=== PATIENT | female | born 1955 | race Caucasian/White ===

== ENCOUNTER 2016-06-10 13:47 | Emergency (ER) | payer MEDICARE, OTHER ==
[~2016-06-10] VITALS: Ht 172.7 cm; Wt 75.0 kg
[~2016-06-10 13:47] MED LIST: ADVAIR 100/28 DISKU1 IH; ALBUTEROL0.09 MG/A4 IH; ANTIVERT 25MG25 MG PO; DALIRESP500 MCG PO; DIAZEPAM5 MG PO; DIFLUCAN 100MG100 MG PO; ERY-TAB250 M1 PO; FLEXERIL 1010 MG/TAB PO; IBUPROFEN800 MG PO; IPRATROPIUM BROM3 M1 IH; K-TAB10 MEQ PO; LASIX40 MG PO; LEVAQUIN 5500 MG/TA1 PO; LOW DOSE ASPIRI81 MG PO; MICARDIS40 MG PO; MONODOX100 PO; MOTRIN 800800 MG/TAB PO; NEXIUM40 MG PO; PERFOROMIS20 MCG/2 M IH; PREDNISONE10 M1 PO; PREDNISONE20 MG PO; PROTONIX 40MG T40 MG PO; PULMICORT0.5 MG/2 M IH; PULMICORT180 MCG/Ac IH; ROXICODONE 55 MG/TAB PO; SINGULAIR10 MG PO; SPIRIVA18 MCG IH; VERAPAMIL240 MG PO
[2016-06-10 13:50] VITALS: TEMP 97.7
[2016-06-10 14:40] LABS: BASO # 0.1 (0.0-0.2); BASO % 0.5 % (0.0-2.0); EOS # 0.2 (0.0-0.7); EOS % 1.5 % (0-4.0); GRAN # 9.9 (1.4-6.5); GRAN % 76.1 % (42.2-75.2); HEMATOCRIT 43.6 % (37.0-47.0); HEMOGLOBIN 14.4 g/dl (12.5-16.0); LYMPH # 1.9 (1.2-3.4); LYMPH % 14.7 % (20.0-51.0); MEAN CELL VOLUME 88 fl (80.0-100.0); MEAN CORPUSCULAR HEMOGLOBIN 29 pg (27.0-31.0); MEAN CORPUSCULAR HGB CONC 33 g/dl (33.0-37.0); MEAN PLATELET VOLUME 9.2 fl (7.4-10.4); MONO # 0.9 (0.1-0.6); MONO % 6.7 % (1.7-9.3); PLATELET COUNT 244 K/mm3 (130-400); RED BLOOD COUNT 4.96 M/mm3 (4.10-5.30); REDCELL DISTRIBUTION WIDTH-CV 14.1 % (11.5-14.5)
[2016-06-10 14:46] LABS: PROTHROMBIN TIME 36.1 SECONDS (9.7-12.8)
[2016-06-10 14:48] LABS: PARTIAL THROMBOPLASTIN TIME 52.7 SECONDS (26.0-37.0)
[2016-06-10 14:48] LABS: ARTERIAL BLD GAS O2 SATURATION 94.1 % (92-100); ARTERIAL BLD GAS TCO2 CT 27.5; ARTERIAL BLOOD GAS BASE EXCESS 2.9 (-2-2); ARTERIAL BLOOD GAS HCO3 26.4 meq/L (22-26); ARTERIAL BLOOD GAS PHT 7.47 C (7.35-7.45); ARTERIAL BLOOD GAS PO2 65.8 mmHg (80-100); ARTERIAL BLOOD GAS PO2T 65.8 (80-100); ARTERIAL BLOOD GAS pH 7.47 (7.35-7.45); OXYHEMOGLOBIN 90.4 %
[2016-06-10 14:49] LABS: ALLEN TEST YES; ALLENS TEST RESULT PASS; ATS? YES
[2016-06-10 14:49] LABS: INR 3.1 (0.8-3.0)
[2016-06-10 15:07] LABS: B-TYPE NATRIURETIC PEPTIDE 94 pg/mL (0-125); TROPONIN-I < 0.012 ng/mL (0.000-0.034)
[2016-06-10 16:39] LABS: ALANINE AMINOTRANSFERASE 29 U/L (9-52); ALBUMIN 3.4 gm/dL (3.5-5.0); ALKALINE PHOSPHATASE 91 U/L (50-136); ANION GAP 8 mmol/L (7-16); BILIRUBIN,TOTAL 0.9 mg/dL (0.0-1.0); BLOOD UREA NITROGEN 12 mg/dL (7-17); CALCIUM 9.5 mg/dL (8.4-10.2); CARBON DIOXIDE 28 mmol/L (22-30); CHLORIDE 99 mmol/L (98-107); CREATININE, serum 0.84 mg/dL (0.52-1.25); GLUCOSE 95 mg/dL (74-106); POTASSIUM 3.9 mmol/L (3.4-5.0); SODIUM 136 mmol/L (137-145); TOTAL PROTEIN 6.7 gm/dL (6.4-8.2)
[2016-06-10] MEDS ORDERED: CONSTULOSE 20G/30ML PO (18:09)
[2016-06-10 18:48] VITALS: BP 138/86; PULSE 100
== END 2016-06-10 18:48 | disposition home or self-care (01) ==
LOC: COL.ER 13:47
PROVIDERS: Emergency Medicine
DX: J44.9 Chronic obstructive pulmonary disease, unspecified (principal); K59.00 Constipation, unspecified; I10 Essential (primary) hypertension; Z87.891 Personal history of nicotine dependence

== ENCOUNTER 2016-07-25 00:12 | Inpatient (IN) | payer MEDICARE, OTHER ==
[~2016-07-25] VITALS: Ht 172.7 cm; Wt 76.2 kg
[~2016-07-25 00:12] MED LIST changes: +CONSTULOSE 20G/30ML PO
[2016-07-25 00:38] LABS: BASO # 0.1 (0.0-0.2); EOS # 0.2 (0.0-0.7); GRAN # 7.1 (1.4-6.5); HEMOGLOBIN 13.4 g/dl (12.5-16.0); LYMPH # 2.4 (1.2-3.4); LYMPH % 23.1 % (20.0-51.0); MEAN CELL VOLUME 88 fl (80.0-100.0); MEAN CORPUSCULAR HEMOGLOBIN 29 pg (27.0-31.0); MEAN CORPUSCULAR HGB CONC 33 g/dl (33.0-37.0); MEAN PLATELET VOLUME 8.9 fl (7.4-10.4); MONO # 0.5 (0.1-0.6); MONO % 4.7 % (1.7-9.3); PLATELET COUNT 260 K/mm3 (130-400); RED BLOOD COUNT 4.66 M/mm3 (4.10-5.30); REDCELL DISTRIBUTION WIDTH-CV 13.9 % (11.5-14.5); WHITE BLOOD COUNT 10.3 K/mm3 (4.8-10.8)
[2016-07-25 00:48] LABS: CALCIUM 9.4 mg/dL (8.4-10.2); CREATININE, serum 0.94 mg/dL (0.52-1.25); POTASSIUM 3.8 mmol/L (3.4-5.0)
[2016-07-25] MEDS ORDERED: IPRATROPIUM BROM3 M1 IH (01:43)
[2016-07-25] MEDS ORDERED: VALIUM 5MG T5 MG/TAB PO (01:44)
[2016-07-25] MEDS ORDERED: ZYRTEC 10MG10 MG PO (01:46)
[2016-07-25 01:48] LABS: INR 1.9 (0.8-3.0); PROTHROMBIN TIME 21.8 SECONDS (9.7-12.8)
[2016-07-25] MEDS ORDERED: COUMADIN 5MG5 MG/TAB PO ×2 (02:00→02:23)
[2016-07-25 04:19] VITALS: BP 103/57; PULSE 93; TEMP 98.3
[2016-07-25 08:06] VITALS: BP 120/72; PULSE 74; TEMP 97.5
[2016-07-25] MEDS ORDERED: VERAPAMIL240 MG/TAB PO (08:17)
[2016-07-25 12:24] VITALS: BP 93/53; PULSE 82; TEMP 97.7
[2016-07-25 15:34] VITALS: BP 100/62; PULSE 85; TEMP 97.6
[2016-07-25 19:42] VITALS: BP 119/60; PULSE 93; TEMP 98
[2016-07-25 22:59] VITALS: BP 123/93; PULSE 111; TEMP 97.9
[2016-07-26 04:23] VITALS: BP 114/59; PULSE 112; TEMP 98.7
[2016-07-26 07:40] LABS: INR 1.7 (0.8-3.0); PROTHROMBIN TIME 19.3 SECONDS (9.7-12.8)
[2016-07-26 07:47] LABS: HEMOGLOBIN 12.1 g/dl (12.5-16.0); MEAN CELL VOLUME 88 fl (80.0-100.0); MEAN CORPUSCULAR HEMOGLOBIN 29 pg (27.0-31.0); MEAN CORPUSCULAR HGB CONC 33 g/dl (33.0-37.0); MEAN PLATELET VOLUME 9.3 fl (7.4-10.4); PLATELET COUNT 257 K/mm3 (130-400); RED BLOOD COUNT 4.15 M/mm3 (4.10-5.30); REDCELL DISTRIBUTION WIDTH-CV 14.1 % (11.5-14.5); WHITE BLOOD COUNT 15.5 K/mm3 (4.8-10.8)
[2016-07-26 08:02] VITALS: BP 117/77; PULSE 116; TEMP 96.9
[2016-07-26 08:07] LABS: ADD PATHOLOGY DIFF REVIEW NO; HEMATOCRIT 36.6 % (37.0-47.0)
[2016-07-26 08:34] LABS: CALCIUM 8.8 mg/dL (8.4-10.2); CREATININE, serum 0.88 mg/dL (0.52-1.25); POTASSIUM 3.8 mmol/L (3.4-5.0)
[2016-07-26 08:59] LABS: BAND 9 % (0-10); NEUTROPHILS 84 % (42.0-75.2); PLATELET ESTIMATE NORMAL (NORMAL); TOTAL CELLS COUNTED 100
[2016-07-26 11:12] VITALS: BP 100/53; PULSE 108; TEMP 98
[2016-07-26] MEDS ORDERED: ZITHROMAX 250M250 MG PO (14:37)
[2016-07-26] MEDS ORDERED: PREDNISONE20 MG PO (14:38)
[2016-07-26] MEDS ORDERED: PHENERGAN 25 TA25 MG PO (15:07)
== END 2016-07-26 16:15 | disposition home or self-care (01) | DRG 189 ==
LOC: COL.ER 00:12 → MEDICAL 02:57 → COL.ER 02:57 → MEDICAL 02:57
PROVIDERS: Emergency Medicine; Internal Medicine; Physician Assistant
DX: J96.21 Acute and chronic respiratory failure with hypoxia (principal); J44.1 Chronic obstructive pulmonary disease with (acute) exacerbation; Z79.01 Long term (current) use of anticoagulants; I48.91 Unspecified atrial fibrillation; I10 Essential (primary) hypertension; R07.81 Pleurodynia
CPT/HCPCS: A4315; G8978-GP; G8979-GP; J0456; J1650; J1885; J2550; J2920; J7040; J7050; J7512

== ENCOUNTER 2016-09-30 14:55 | Emergency (ER) | payer MEDICARE, OTHER ==
[~2016-09-30] VITALS: Ht 172.7 cm; Wt 72.7 kg
[~2016-09-30 14:55] MED LIST changes: +COUMADIN 5MG5 MG/TAB PO; +PHENERGAN 25 TA25 MG PO; +VALIUM 5MG T5 MG/TAB PO; +VERAPAMIL240 MG/TAB PO; +ZITHROMAX 250M250 MG PO; +ZYRTEC 10MG10 MG PO
[2016-09-30 14:59] VITALS: TEMP 98.5
[2016-09-30 15:23] LABS: BASO # 0.1 (0.0-0.2); BASO % 0.8 % (0.0-2.0); EOS # 0.2 (0.0-0.7); GRAN % 76.4 % (42.2-75.2); HEMATOCRIT 44.8 % (37.0-47.0); HEMOGLOBIN 14.9 g/dl (12.5-16.0); LYMPH # 1.6 (1.2-3.4); LYMPH % 17.2 % (20.0-51.0); MEAN CELL VOLUME 89 fl (80.0-100.0); MEAN CORPUSCULAR HEMOGLOBIN 29 pg (27.0-31.0); MEAN CORPUSCULAR HGB CONC 33 g/dl (33.0-37.0); MEAN PLATELET VOLUME 8.9 fl (7.4-10.4); MONO # 0.3 (0.1-0.6); MONO % 3.4 % (1.7-9.3); PLATELET COUNT 229 K/mm3 (130-400); RED BLOOD COUNT 5.06 M/mm3 (4.10-5.30); REDCELL DISTRIBUTION WIDTH-CV 13.7 % (11.5-14.5); WHITE BLOOD COUNT 9.2 K/mm3 (4.8-10.8)
[2016-09-30 15:29] LABS: ADJUSTED CALCIUM 9.4 mg/dL (8.4-10.2); ALANINE AMINOTRANSFERASE 22 U/L (9-52); ALKALINE PHOSPHATASE 78 U/L (50-136); ANION GAP 11 mmol/L (7-16); BILIRUBIN,TOTAL 0.7 mg/dL (0.0-1.0); BLOOD UREA NITROGEN 9 mg/dL (7-17); CALCIUM 9.4 mg/dL (8.4-10.2); CARBON DIOXIDE 30 mmol/L (22-30); CHLORIDE 102 mmol/L (98-107); CREATININE, serum 0.92 mg/dL (0.52-1.25); GLUCOSE 94 mg/dL (74-106); SODIUM 143 mmol/L (137-145); TOTAL PROTEIN 6.8 gm/dL (6.4-8.2)
[2016-09-30 15:47] LABS: POTASSIUM 2.9 mmol/L (3.4-5.0)
[2016-09-30 15:58] LABS: TROPONIN-I < 0.012 ng/mL (0.000-0.034)
[2016-09-30 16:05] LABS: MAGNESIUM 1.9 mg/dL (1.6-2.3)
[2016-09-30 16:54] LABS: B-TYPE NATRIURETIC PEPTIDE 159 pg/mL (0-125)
[2016-09-30] MEDS ORDERED: MEDROL 4MG DOSPA4 MG PO (17:02)
[2016-09-30] MEDS ORDERED: KLOR-CON 1010 MEQ PO (17:09)
[2016-09-30 17:42] LABS: PH 7 (5-8); SQUAMOUS EPITHELIAL None Seen /hpf; URINE APPEARANCE Clear; URINE BACTERIA None Seen /hpf; URINE BILIRUBIN Negative (NEGATIVE); URINE BLOOD 1+ (NEGATIVE); URINE COLOR Straw; URINE GLUCOSE Negative (NEGATIVE); URINE KETONE Negative (NEGATIVE); URINE RBC 0-2 /hpf; URINE UROBILINOGEN Negative (NEGATIVE); URINE WBC 0-2 /hpf
[2016-09-30] MEDS ORDERED: TUSS PO (18:23)
[2016-09-30 18:40] VITALS: BP 128/78; PULSE 98
== END 2016-09-30 18:42 | disposition home or self-care (01) ==
LOC: COL.ER 14:55
PROVIDERS: Emergency Medicine
DX: J44.1 Chronic obstructive pulmonary disease with (acute) exacerbation (principal); E87.6 Hypokalemia; R09.89 Other specified symptoms and signs involving the circulatory and respiratory systems; R05 Cough; I48.91 Unspecified atrial fibrillation; Z79.01 Long term (current) use of anticoagulants; I10 Essential (primary) hypertension; F17.210 Nicotine dependence, cigarettes, uncomplicated
CPT/HCPCS: J1885; J3475; J7030; J7512

== ENCOUNTER 2016-12-03 17:20 | Emergency (ER) | payer MEDICARE, OTHER ==
[~2016-12-03] VITALS: Ht 172.7 cm; Wt 68.2 kg
[~2016-12-03 17:20] MED LIST changes: +KLOR-CON 1010 MEQ PO; +MEDROL 4MG DOSPA4 MG PO; +TUSS PO
[2016-12-03 17:28] VITALS: TEMP 98.2
[2016-12-03 18:10] LABS: BASO # 0.1 (0.0-0.2); BASO % 0.8 % (0.0-2.0); EOS # 0.3 (0.0-0.7); EOS % 3.2 % (0-4.0); GRAN # 6.9 (1.4-6.5); GRAN % 70.5 % (42.2-75.2); HEMATOCRIT 41.5 % (37.0-47.0); HEMOGLOBIN 13.8 g/dl (12.5-16.0); LYMPH # 1.9 (1.2-3.4); LYMPH % 18.9 % (20.0-51.0); MEAN CELL VOLUME 88 fl (80.0-100.0); MEAN CORPUSCULAR HEMOGLOBIN 29 pg (27.0-31.0); MEAN CORPUSCULAR HGB CONC 33 g/dl (33.0-37.0); MEAN PLATELET VOLUME 9.4 fl (7.4-10.4); MONO # 0.6 (0.1-0.6); MONO % 6.3 % (1.7-9.3); PLATELET COUNT 269 K/mm3 (130-400); RED BLOOD COUNT 4.74 M/mm3 (4.10-5.30); REDCELL DISTRIBUTION WIDTH-CV 13.8 % (11.5-14.5); WHITE BLOOD COUNT 9.8 K/mm3 (4.8-10.8)
[2016-12-03 18:22] LABS: INR 1.6 (0.8-3.0); PROTHROMBIN TIME 18.2 SECONDS (9.7-12.8)
[2016-12-03 18:25] LABS: PARTIAL THROMBOPLASTIN TIME 37.4 SECONDS (26.0-37.0)
[2016-12-03 18:36] LABS: ADJUSTED CALCIUM 9.4 mg/dL (8.4-10.2); ALANINE AMINOTRANSFERASE 18 U/L (9-52); ALBUMIN 3.8 gm/dL (3.5-5.0); ALKALINE PHOSPHATASE 70 U/L (50-136); ANION GAP 9 mmol/L (7-16); BILIRUBIN,TOTAL 0.5 mg/dL (0.0-1.0); BLOOD UREA NITROGEN 11 mg/dL (7-17); C-REACTIVE PROTEIN 1.2 mg/dL (0.0-0.9); CALCIUM 9.2 mg/dL (8.4-10.2); CARBON DIOXIDE 29 mmol/L (22-30); CHLORIDE 100 mmol/L (98-107); CREATININE, serum 0.74 mg/dL (0.52-1.25); GLUCOSE 116 mg/dL (74-106); POTASSIUM 3.1 mmol/L (3.4-5.0); SODIUM 138 mmol/L (137-145); TOTAL PROTEIN 6.6 gm/dL (6.4-8.2)
[2016-12-03 18:44] LABS: TROPONIN-I < 0.012 ng/mL (0.000-0.034)
[2016-12-03] MEDS ORDERED: NORCO 325 MG-51 TAB PO (18:55)
[2016-12-03] MEDS ORDERED: ZOFRAN 4MG T4 MG/TAB PO (18:55)
[2016-12-03 19:18] VITALS: BP 132/88; PULSE 89
== END 2016-12-03 19:20 | disposition home or self-care (01) ==
LOC: COL.ER 17:20
PROVIDERS: Family Medicine
DX: M25.512 Pain in left shoulder (principal); R07.9 Chest pain, unspecified; J44.9 Chronic obstructive pulmonary disease, unspecified; F17.210 Nicotine dependence, cigarettes, uncomplicated
CPT/HCPCS: J2270

== ENCOUNTER → 2017-06-14 | Outpatient (CLI) | payer MEDICARE, OTHER ==
[~2017-06-14] MED LIST changes: +DULCOLAX S10 MG/SUPP RC; +NORCO 325 MG-51 TAB PO; +ZOFRAN 4MG T4 MG/TAB PO
== END ==
LOC: COL.RAD 08:15
DX: K57.92 Diverticulitis of intestine, part unspecified, without perforation or abscess without bleeding (principal); K82.9 Disease of gallbladder, unspecified
CPT/HCPCS: A9541

== ENCOUNTER 2017-07-07 20:10 | Emergency (ER) | payer MEDICARE, OTHER ==
[~2017-07-07] VITALS: Ht 172.7 cm; Wt 54.5 kg
[2017-07-07 21:19] LABS: COLLECTION METHOD CLEAN CATCH
[2017-07-07 21:22] LABS: BASO # 0.1 (0.0-0.2); BASO % 0.8 % (0.0-2.0); EOS # 0.1 (0.0-0.7); EOS % 1.2 % (0-4.0); GRAN # 6.3 (1.4-6.5); GRAN % 74.5 % (42.2-75.2); HEMOGLOBIN 14.2 g/dl (12.5-16.0); LYMPH # 1.5 (1.2-3.4); LYMPH % 17.6 % (20.0-51.0); MEAN CELL VOLUME 89 fl (80.0-100.0); MEAN CORPUSCULAR HEMOGLOBIN 30 pg (27.0-31.0); MEAN CORPUSCULAR HGB CONC 33 g/dl (33.0-37.0); MEAN PLATELET VOLUME 9.2 fl (7.4-10.4); MONO # 0.5 (0.1-0.6); MONO % 5.7 % (1.7-9.3); PLATELET COUNT 253 K/mm3 (130-400); RED BLOOD COUNT 4.82 M/mm3 (4.10-5.30); REDCELL DISTRIBUTION WIDTH-CV 13.7 % (11.5-14.5)
[2017-07-07 21:27] LABS: PROTHROMBIN TIME 23.9 SECONDS (9.7-12.8)
[2017-07-07 21:34] LABS: ALANINE AMINOTRANSFERASE 21 U/L (9-52); ALKALINE PHOSPHATASE 78 U/L (50-136); ANION GAP 7 mmol/L (7-16); AST,SGOT 15 U/L (15-37); BILIRUBIN,TOTAL 0.5 mg/dL (0.0-1.0); BLOOD UREA NITROGEN 9 mg/dL (7-17); C-REACTIVE PROTEIN 0.9 mg/dL (0.0-0.9); CARBON DIOXIDE 29 mmol/L (22-30); CHLORIDE 101 mmol/L (98-107); CREATININE, serum 0.79 mg/dL (0.52-1.25); GLUCOSE 101 mg/dL (74-106); LIPASE 24 U/L (23-300); SODIUM 137 mmol/L (137-145); TOTAL PROTEIN 6.9 gm/dL (6.4-8.2)
[2017-07-07 21:36] LABS: MUCOUS Present /lpf; PH 7 (5-8); SQUAMOUS EPITHELIAL 0-2 /hpf; URINE APPEARANCE Hazy; URINE BACTERIA Rare /hpf; URINE BILIRUBIN Negative (NEGATIVE); URINE BLOOD 1+ (NEGATIVE); URINE COLOR Yellow; URINE GLUCOSE Negative (NEGATIVE); URINE KETONE Negative (NEGATIVE); URINE LEUKOCYTE ESTERASE 1+ (NEGATIVE); URINE NITRATE Negative (NEGATIVE); URINE PROTEIN(semi-quant) Negative (NEGATIVE); URINE RBC 0-2 /hpf; URINE UROBILINOGEN Negative (NEGATIVE)
[2017-07-07 21:45] LABS: TROPONIN-I < 0.012 ng/mL (0.000-0.034)
[2017-07-07 21:59] VITALS: TEMP 98.1
[2017-07-07] MEDS ORDERED: ZOFRAN 4MG T4 MG/TAB PO (23:55)
[2017-07-07] MEDS ORDERED: MACROBID 1100 MG/CAP PO (23:55)
[2017-07-08 00:29] VITALS: BP 112/67; PULSE 92
== END 2017-07-08 00:32 | disposition home or self-care (01) ==
LOC: COL.ER 20:10
PROVIDERS: Emergency Medicine
DX: N39.0 Urinary tract infection, site not specified (principal); R10.84 Generalized abdominal pain; R07.9 Chest pain, unspecified; R11.0 Nausea; I10 Essential (primary) hypertension; I48.0 Paroxysmal atrial fibrillation; J44.9 Chronic obstructive pulmonary disease, unspecified; F17.210 Nicotine dependence, cigarettes, uncomplicated; Z79.52 Long term (current) use of systemic steroids; Z79.82 Long term (current) use of aspirin; Z79.01 Long term (current) use of anticoagulants; Z90.49 Acquired absence of other specified parts of digestive tract
CPT/HCPCS: J2405; J3010; J7030

== ENCOUNTER 2017-10-04 08:00 | Day surgery (SDC) | payer MEDICARE, OTHER ==
[~2017-10-04] VITALS: Ht 172.8 cm; Wt 59.1 kg
[~2017-10-04 08:00] MED LIST changes: +MACROBID 1100 MG/CAP PO; +VERAPAMIL180 MG/TAB PO; -VERAPAMIL240 MG/TAB PO
[2017-10-04 08:36] VITALS: BP 118/67; PULSE 89; TEMP 97.8
[2017-10-04] MEDS ORDERED: RT SPIRIVA18 MCG IH (08:44)
[2017-10-04] MEDS ORDERED: PROAIR HFA0.09 MG/AC IH (08:45)
[2017-10-04] MEDS ORDERED: ZYRTEC 10MG10 MG PO (08:47)
[2017-10-04] MEDS ORDERED: PROTONIX 40MG T40 MG PO (08:49)
[2017-10-04] MEDS ORDERED: REGLAN 5MG T5 MG/TAB PO (08:49)
[2017-10-04] MEDS ORDERED: CLEOCIN HCL300 MG PO (10:25)
== END 2017-10-04 14:00 | disposition home or self-care (01) ==
LOC: COL.CAR 08:00
DX: I48.0 Paroxysmal atrial fibrillation (principal); I47.1 Supraventricular tachycardia; I10 Essential (primary) hypertension; I25.10 Atherosclerotic heart disease of native coronary artery without angina pectoris; J44.9 Chronic obstructive pulmonary disease, unspecified; F17.210 Nicotine dependence, cigarettes, uncomplicated; Z82.49 Family history of ischemic heart disease and other diseases of the circulatory system; Z88.0 Allergy status to penicillin; Z88.2 Allergy status to sulfonamides; Z79.82 Long term (current) use of aspirin; Z79.01 Long term (current) use of anticoagulants; Z82.5 Family history of asthma and other chronic lower respiratory diseases

== ENCOUNTER 2017-12-20 12:58 | Day surgery (SDC) | payer MEDICARE, OTHER ==
[~2017-12-20] VITALS: Ht 172.7 cm; Wt 59.7 kg
[~2017-12-20 12:58] MED LIST changes: +CLEOCIN HCL300 MG PO; +PROAIR HFA0.09 MG/AC IH; +REGLAN 5MG T5 MG/TAB PO; +RT SPIRIVA18 MCG IH
[2017-12-20 13:52] VITALS: BP 117/87; PULSE 135; TEMP 98.6
[2017-12-20] MEDS ORDERED: RT SPIRIVA18 MCG IH (13:59)
[2017-12-20] MEDS ORDERED: PROAIR HFA0.09 MG/AC IH (14:00)
[2017-12-20] MEDS ORDERED: VERELAN180 MG PO (14:00)
[2017-12-20] MEDS ORDERED: SINGULAIR 110 MG/TAB PO (14:01)
[2017-12-20] MEDS ORDERED: ZYRTEC 10MG10 MG PO (14:01)
[2017-12-20] MEDS ORDERED: ASPIRIN 81M81 MG/TA2 PO (14:01)
[2017-12-20] MEDS ORDERED: VALIUM 5MG T5 MG/TAB PO (14:02)
[2017-12-20] MEDS ORDERED: REGLAN 5MG T5 MG/TAB PO (14:02)
[2017-12-20] MEDS ORDERED: PROTONIX 40MG T40 MG PO (14:02)
[2017-12-20] MEDS ORDERED: COUMADIN 5MG5 MG/TAB PO (14:03)
[2017-12-20] MEDS ORDERED: PERFOROMIS20 MCG/2 M IH ×2 (14:05→14:10)
[2017-12-20] MEDS ORDERED: CIPRO 500MG TA500 MG PO (14:06)
[2017-12-20] MEDS ORDERED: FLAGYL500 MG PO (14:08)
[2017-12-20] MEDS ORDERED: COMPAZINE 110 MG/TAB PO (14:09)
[2017-12-20] MEDS ORDERED: ALBUTEROL0.83 MG/ML IH (14:10)
[2017-12-20] MEDS ORDERED: MIRTAZAPINE7.5 MG PO (14:15)
[2017-12-20 15:15] VITALS: BP 130/88; PULSE 112; TEMP 98.4
[2017-12-20 15:30] VITALS: BP 124/80; PULSE 104
[2017-12-20 15:45] VITALS: BP 102/73; PULSE 105
[2017-12-20 16:00] VITALS: BP 110/71; PULSE 100
== END 2017-12-20 16:19 | disposition home or self-care (01) ==
LOC: SDCO 12:58
DX: K55.9 Vascular disorder of intestine, unspecified (principal); K57.30 Diverticulosis of large intestine without perforation or abscess without bleeding; K21.9 Gastro-esophageal reflux disease without esophagitis; K29.30 Chronic superficial gastritis without bleeding; J45.909 Unspecified asthma, uncomplicated; I48.91 Unspecified atrial fibrillation; E78.00 Pure hypercholesterolemia, unspecified; N39.0 Urinary tract infection, site not specified; Z88.0 Allergy status to penicillin; Z88.1 Allergy status to other antibiotic agents; Z79.82 Long term (current) use of aspirin; Z90.49 Acquired absence of other specified parts of digestive tract; Z90.710 Acquired absence of both cervix and uterus
CPT/HCPCS: J2250; J2405; J3010; J7030

== ENCOUNTER 2018-03-26 20:06 | Inpatient (IN) | payer MEDICARE, OTHER ==
[~2018-03-26] VITALS: Ht 172.7 cm; Wt 55.6 kg
[~2018-03-26 20:06] MED LIST changes: +ALBUTEROL0.83 MG/ML IH; +ASPIRIN 81M81 MG/TA2 PO; +CIPRO 500MG TA500 MG PO; +COMPAZINE 110 MG/TAB PO; +COUMADIN 22.5 MG/TAB PO; +FLAGYL500 MG PO; +MIRTAZAPINE7.5 MG PO; +SINGULAIR 110 MG/TAB PO; +VERELAN180 MG PO
[2018-03-26 20:39] LABS: BASO # 0.1 (0.0-0.2); BASO % 0.6 % (0.0-2.0); EOS # 0.2 (0.0-0.7); EOS % 2.7 % (0-4.0); GRAN # 5.5 (1.4-6.5); GRAN % 68.4 % (42.2-75.2); HEMATOCRIT 38.7 % (37.0-47.0); HEMOGLOBIN 12.7 g/dl (12.5-16.0); LYMPH # 1.9 (1.2-3.4); LYMPH % 23.1 % (20.0-51.0); MEAN CELL VOLUME 90 fl (80.0-100.0); MEAN CORPUSCULAR HEMOGLOBIN 30 pg (27.0-31.0); MEAN CORPUSCULAR HGB CONC 33 g/dl (33.0-37.0); MEAN PLATELET VOLUME 9.1 fl (7.4-10.4); MONO # 0.4 (0.1-0.6); PLATELET COUNT 227 K/mm3 (130-400); RED BLOOD COUNT 4.29 M/mm3 (4.10-5.30); REDCELL DISTRIBUTION WIDTH-CV 14.8 % (11.5-14.5)
[2018-03-26 20:40] LABS: ARTERIAL BLD GAS O2 SATURATION 97.8 % (92-100); ARTERIAL BLD GAS TCO2 CT 23.9; ARTERIAL BLOOD GAS BASE EXCESS 2.5 (-2-2); ARTERIAL BLOOD GAS HCO3 23.1 meq/L (22-26); ARTERIAL BLOOD GAS PCO2 25.4 mmHg (35-45); ARTERIAL BLOOD GAS PO2 92.4 mmHg (80-100); ARTERIAL BLOOD GAS pH 7.58 (7.35-7.45)
[2018-03-26 20:49] LABS: ALANINE AMINOTRANSFERASE 20 U/L (9-52); ALBUMIN 3.4 gm/dL (3.5-5.0); ALKALINE PHOSPHATASE 59 U/L (50-136); ANION GAP 5 mmol/L (7-16); AST,SGOT 22 U/L (15-37); BILIRUBIN,TOTAL 0.4 mg/dL (0.0-1.0); BLOOD UREA NITROGEN 11 mg/dL (7-17); CALCIUM 8.8 mg/dL (8.4-10.2); CARBON DIOXIDE 29 mmol/L (22-30); CHLORIDE 106 mmol/L (98-107); CREATININE, serum 0.86 mg/dL (0.52-1.25); GLUCOSE 98 mg/dL (74-106); POTASSIUM 3.4 mmol/L (3.4-5.0); SODIUM 140 mmol/L (137-145); TOTAL PROTEIN 6.1 gm/dL (6.4-8.2)
[2018-03-26 20:51] LABS: PROTHROMBIN TIME 22.7 SECONDS (9.7-12.8)
[2018-03-26 20:53] LABS: PARTIAL THROMBOPLASTIN TIME 38.7 SECONDS (26.0-37.0)
[2018-03-26 21:00] LABS: TROPONIN-I < 0.012 ng/mL (0.000-0.034)
[2018-03-26] MEDS ORDERED: JANTOVEN2.5 MG PO (21:30)
[2018-03-26] MEDS ORDERED: COUMADIN 5MG5 MG/TAB PO (21:30)
[2018-03-27] MEDS ORDERED: KLOR-CON M1010 MEQ PO (00:31)
[2018-03-27] MEDS ORDERED: ISOPTIN SR180 M1 PO (00:33)
[2018-03-27 00:45] VITALS: BP 101/54; PULSE 72; TEMP 98
[2018-03-27 04:56] VITALS: BP 117/58; PULSE 70; TEMP 97.7
[2018-03-27 07:57] VITALS: BP 92/42; PULSE 73; TEMP 97.9
[2018-03-27 12:32] VITALS: BP 106/54; PULSE 78; TEMP 98
[2018-03-27 16:18] VITALS: BP 109/57; PULSE 79; TEMP 98.7
[2018-03-27 20:08] VITALS: BP 124/65; PULSE 91; TEMP 98.9
[2018-03-28 00:01] VITALS: BP 120/72; PULSE 104
[2018-03-28 04:00] VITALS: BP 108/64; PULSE 93; TEMP 97.9
[2018-03-28 06:53] LABS: BASO % 0.6 % (0.0-2.0); EOS # 0.2 (0.0-0.7); EOS % 3.7 % (0-4.0); GRAN % 55.8 % (42.2-75.2); HEMOGLOBIN 10.9 g/dl (12.5-16.0); LYMPH # 1.7 (1.2-3.4); LYMPH % 32.4 % (20.0-51.0); MEAN CELL VOLUME 93 fl (80.0-100.0); MEAN CORPUSCULAR HEMOGLOBIN 30 pg (27.0-31.0); MEAN CORPUSCULAR HGB CONC 32 g/dl (33.0-37.0); MEAN PLATELET VOLUME 8.8 fl (7.4-10.4); MONO # 0.4 (0.1-0.6); MONO % 7.1 % (1.7-9.3); PLATELET COUNT 193 K/mm3 (130-400); RED BLOOD COUNT 3.63 M/mm3 (4.10-5.30)
[2018-03-28 06:56] LABS: HEMATOCRIT 33.9 % (37.0-47.0)
[2018-03-28 06:58] LABS: CREATININE, serum 0.78 mg/dL (0.52-1.25)
[2018-03-28 07:59] VITALS: BP 131/75; PULSE 90; TEMP 97.6
[2018-03-28] MEDS ORDERED: XOPENEX 1.1.25 MG/3 IH ×2 (08:53→09:30)
[2018-03-28] MEDS ORDERED: TIAZAC120 MG PO ×2 (08:53→09:30)
== END 2018-03-28 12:40 | disposition home or self-care (01) | DRG 313 ==
LOC: COL.ER 20:06 → MEDICAL 22:52
PROVIDERS: Family Medicine; Physician Assistant
DX: R07.89 Other chest pain (principal); F41.0 Panic disorder [episodic paroxysmal anxiety]; I10 Essential (primary) hypertension; I48.2 Chronic atrial fibrillation; Z79.01 Long term (current) use of anticoagulants; I95.2 Hypotension due to drugs; T46.3X5A Adverse effect of coronary vasodilators, initial encounter; F17.200 Nicotine dependence, unspecified, uncomplicated; E87.6 Hypokalemia; J44.9 Chronic obstructive pulmonary disease, unspecified; M48.54XS Collapsed vertebra, not elsewhere classified, thoracic region, sequela of fracture
CPT/HCPCS: 99222-AI; 99239; G0378; G8978-GP; G8979-GP; J2060; J7030; J7040

== ENCOUNTER → 2018-10-10 | Outpatient (REF) ==
[~2018-10-10] MED LIST changes: +HALLS9.1 MG MM; +ISOPTIN SR180 M1 PO; +KLOR-CON M1010 MEQ PO; +RT ADVAIR HFA 1112 G IH; +TESSALON P100 MG/CAP PO; +TIAZAC120 MG PO; +XOPENEX 1.1.25 MG/3 IH
== END ==
LOC: ZLAB.WCH 17:15
DX: Z01.89 Encounter for other specified special examinations (principal)

== ENCOUNTER 2019-06-04 09:43 | Inpatient (IN) | payer MEDICARE, OTHER ==
[~2019-06-04] VITALS: Ht 172.7 cm; Wt 61.2 kg
[2019-06-04 10:20] LABS: HEMATOCRIT 38.4 % (37.0-47.0); HEMOGLOBIN 11.5 g/dl (12.5-16.0); MEAN CELL VOLUME 88 fl (80.0-100.0); MEAN CORPUSCULAR HEMOGLOBIN 26 pg (27.0-31.0); MEAN CORPUSCULAR HGB CONC 30 g/dl (33.0-37.0); MEAN PLATELET VOLUME 8.7 fl (7.4-10.4); PLATELET COUNT 228 K/mm3 (130-400); RED BLOOD COUNT 4.37 M/mm3 (4.10-5.30)
[2019-06-04 10:29] LABS: ALANINE AMINOTRANSFERASE 31 U/L (9-52); ALBUMIN 3.7 gm/dL (3.5-5.0); ALKALINE PHOSPHATASE 77 U/L (50-136); ANION GAP 4 mmol/L (7-16); AST,SGOT 22 U/L (15-37); BILIRUBIN,TOTAL 0.7 mg/dL (0.0-1.0); BLOOD UREA NITROGEN 21 mg/dL (7-17); CALCIUM 8.8 mg/dL (8.4-10.2); CARBON DIOXIDE 36 mmol/L (22-30); CHLORIDE 99 mmol/L (98-107); GLUCOSE 109 mg/dL (74-106); MAGNESIUM 2.2 mg/dL (1.6-2.3); POTASSIUM 4.5 mmol/L (3.4-5.0); SODIUM 138 mmol/L (137-145); TOTAL PROTEIN 6.7 gm/dL (6.4-8.2)
[2019-06-04 10:38] LABS: TROPONIN-I < 0.012 ng/mL (0.000-0.035)
[2019-06-04 10:56] LABS: INR 1.2 (0.8-3.0); PROTHROMBIN TIME 14.4 SECONDS (9.7-12.8)
[2019-06-04 11:06] LABS: BAND 4 % (0-10); LYMPHOCYTE 8 % (20.0-51.0); NEUTROPHILS 85 % (42.0-75.2); PLATELET ESTIMATE NORMAL (NORMAL)
[2019-06-04 12:08] LABS: COLLECTION METHOD CLEAN CATCH
[2019-06-04 12:18] LABS: MUCOUS Present /lpf; PH 7 (5-8); SQUAMOUS EPITHELIAL 0-2 /hpf; URINE APPEARANCE Hazy; URINE BACTERIA Occasional /hpf; URINE BILIRUBIN Negative (NEGATIVE); URINE BLOOD 2+ (NEGATIVE); URINE COLOR Yellow; URINE GLUCOSE Negative (NEGATIVE); URINE KETONE Negative (NEGATIVE); URINE LEUKOCYTE ESTERASE Trace (NEGATIVE); URINE NITRATE Positive (NEGATIVE); URINE PROTEIN(semi-quant) Negative (NEGATIVE); URINE UROBILINOGEN Negative (NEGATIVE)
[2019-06-04] MEDS ORDERED: COUMADIN 5MG5 MG/TAB PO (14:10)
[2019-06-04] MEDS ORDERED: COUMADIN 22.5 MG/TAB PO (14:11)
[2019-06-04] MEDS ORDERED: PERFOROMIS20 MCG/2 M IH (14:16)
[2019-06-04 18:25] VITALS: BP 127/79; PULSE 95; TEMP 97.5
--- NOTE | 2019-06-04 18:49 | NUR ---
Warfarin Initial Dosing Pharmacy Note Ordering Provider: Manuel Santana MD Indication: Atrial fibrillation LABS: INR 1.2 Recommendation: Initiate at 6 mg daily, follow daily pt/inr and adjust Home Regimen: 5 mg po 5 days/week, 2.5 mg po 2 days/week
[2019-06-04 19:24] VITALS: BP 94/55; PULSE 94; TEMP 97.7
--- NOTE | 2019-06-04 19:43 | NUR ---
PRN morphine admin for c/o back pain.
--- NOTE | 2019-06-04 20:24 | NUR ---
RESTING IN BED. REPORTS PAIN IMPROVED WITH PAIN MEDICATION. DENIES NEEDS AT THIS TIME.
[2019-06-04 22:40] VITALS: BP 94/55; PULSE 94; TEMP 97.7
[2019-06-05 03:34] VITALS: BP 131/66; PULSE 112; TEMP 97.5
--- NOTE | 2019-06-05 04:39 | NUR ---
PRN norco admin 2146 for back and RLE pain. PRN morphine admin 2218,[id number] for back and RLE pain.
--- NOTE | 2019-06-05 05:51 | NUR ---
Up to bedside commode. PRN [place] and morphine admin for c/o back and RLE pain.
[2019-06-05 08:16] VITALS: BP 129/57; PULSE 123; TEMP 98.2
[2019-06-05 08:55] LABS: HEMOGLOBIN 10.1 g/dl (12.5-16.0); MEAN CELL VOLUME 87 fl (80.0-100.0); MEAN CORPUSCULAR HEMOGLOBIN 26 pg (27.0-31.0); MEAN CORPUSCULAR HGB CONC 30 g/dl (33.0-37.0); MEAN PLATELET VOLUME 9.6 fl (7.4-10.4); PLATELET COUNT 190 K/mm3 (130-400); RED BLOOD COUNT 3.84 M/mm3 (4.10-5.30); REDCELL DISTRIBUTION WIDTH-CV 15.5 % (11.5-14.5)
[2019-06-05 09:04] LABS: HEMATOCRIT 33.4 % (37.0-47.0)
[2019-06-05 09:08] LABS: CALCIUM 8.4 mg/dL (8.4-10.2); CREATININE, serum 0.6 (0.52-1.25); POTASSIUM 3.2 mmol/L (3.4-5.0)
[2019-06-05 09:11] LABS: INR 1.3 (0.8-3.0); PROTHROMBIN TIME 14.8 SECONDS (9.7-12.8)
[2019-06-05] MEDS ORDERED: LOPRESSOR100 MG PO (09:15)
--- NOTE | 2019-06-05 09:22 | NUR ---
PER TELEMETRY HEART RATE SUSTAINED ABOVE 130 GREATER THAN 15 MINUETS REGULAR RHYTHM. PATIENT HAS NO C/O CHEST PAIN OR PRESSURE. DOES HAVE SOME SOA WITH AUDIBLE WHEEZING. SEE MAR FOR NEBULIZER BREATHING TREATMENTS ADMINISTERED BY RT. DR ASKEW NOTIFIED. ORDER RECEIVED FOR 12 LEAD EKG NOW. MEDICATION LIST OBTAINED FROM PCP INDICATING THAT SHE IS TAKING METOPROLOL 100MG BID. NOT ON MEDICATION LIST PROVIDED ON ADMISSION. SEE FLOW SHEET FOR BP OBTAINED WNL.
[2019-06-05 09:36] LABS: BAND 4 % (0-10); LYMPHOCYTE 8 % (20.0-51.0); NEUTROPHILS 86 % (42.0-75.2); PLATELET ESTIMATE NORMAL (NORMAL)
--- NOTE | 2019-06-05 11:21 | NUR ---
ALTAGRACIA met with the patient to discuss discharge plan. The patient lives alone in [place]. She states that her sister, Pita, lives behind her house and that her daughter, Sophia (ph#[phone]), lives in [place]. She states that they are both supportive and helpful. She reports needing some assistance with bathing and has a cane, walker, and home oxygen from [employer]. She states that her daughter helps her with bathing. The patient's PCP is Dr. Chirag Braswell and she receives her medications at [facility] or through the mail from [facility]. She reports no difficulties obtaining her meds. The patient does not have advanced directives in EMR, but she states that she does have them completed. She states her her daughter, Sophia, is her DPOA-HC. The patient plans to return home upon discharge. She states that she is interested in home health services from [facility] and that she has had them in the past. ALTAGRACIA provided the patient with Medicare.gov's list of home health agencies. The patient chose [facility]. ALTAGRACIA contacted and faxed a referral to [facility]. [facility] reports that they are able to accept the patient for services. ALTAGRACIA to inform the patient and will continue to follow.
[2019-06-05 18:55] VITALS: BP 119/61; PULSE 93; TEMP 97.4
--- NOTE | 2019-06-05 19:30 | NUR ---
Report rcvd from DEMARCO Cunningham. Pt having some urinary retention problems post void. Will continue to monitor. Assessment completed. Pt has c/o slight pain and discomfort. Call light within reach. No further concerns at this time.
[2019-06-06 00:11] VITALS: BP 116/62; PULSE 71; TEMP 97.9
[2019-06-06 02:52] VITALS: BP 122/66; PULSE 77; TEMP 97.8
--- NOTE | 2019-06-06 06:14 | NUR ---
Pt has retained post void x3. None of the post void retention values below 400ml. Straight cath X1 when retention reached 449. Pt felt relieved and also stated she felt as though she was retaining because she also had not had a bowel movement since . Contacted compliance professional provider who ordered miralax QD, ducolax suppository PRN as well as 2 sennekot tabs QHS. Pt is satisfied with this treatment. Pt did have some c/o pain that was managed with PO [place]. No further concerns. Report given to DEMARCO Cunningham.
[2019-06-06 07:26] VITALS: BP 122/60; PULSE 82; TEMP 98.1
[2019-06-06 08:09] LABS: BASO % 0.1 % (0.0-2.0); GRAN # 12.4 (1.4-6.5); GRAN % 93.1 % (42.2-75.2); LYMPH # 0.4 (1.2-3.4); LYMPH % 3.2 % (20.0-51.0); MEAN CELL VOLUME 86 fl (80.0-100.0); MEAN CORPUSCULAR HGB CONC 31 g/dl (33.0-37.0); MEAN PLATELET VOLUME 9.8 fl (7.4-10.4); MONO # 0.4 (0.1-0.6); MONO % 2.9 % (1.7-9.3); PLATELET COUNT 223 K/mm3 (130-400); RED BLOOD COUNT 3.43 M/mm3 (4.10-5.30); REDCELL DISTRIBUTION WIDTH-CV 15.6 % (11.5-14.5)
[2019-06-06 08:15] LABS: CALCIUM 8.2 mg/dL (8.4-10.2); CREATININE, serum 0.65 (0.52-1.25); POTASSIUM 3.9 mmol/L (3.4-5.0)
[2019-06-06 08:26] LABS: HEMATOCRIT 29.5 % (37.0-47.0); HEMOGLOBIN 9.1 g/dl (12.5-16.0); MEAN CORPUSCULAR HEMOGLOBIN 27 pg (27.0-31.0)
[2019-06-06 10:35] LABS: INR 2.7 (0.8-3.0); PROTHROMBIN TIME 31.9 SECONDS (9.7-12.8)
[2019-06-06 13:36] VITALS: BP 129/74; PULSE 83; TEMP 98.6
[2019-06-06 17:13] VITALS: BP 131/76; PULSE 77; TEMP 98.7
[2019-06-06 19:08] VITALS: BP 116/58; PULSE 79; TEMP 98
[2019-06-07] VITALS (8 sets, daily range): BP systolic 112–130; BP diastolic 54–76; PULSE 66–100; TEMP 97.3–98.2
--- NOTE | 2019-06-07 01:42 | NUR ---
PT IS SLEEPING IN BED. USING O2 PER ORDERS. NO CONCERNS AT THIS TIME. PT IS NOT IN NEED OF ANYTHING AT THIS MOMENT.
--- NOTE | 2019-06-07 01:44 | NUR ---
PT WOKE WANTING HER INHALER. RT IS NOW WITH PT GIVING SCHEDULED BREATHING TREATMENT.
--- NOTE | 2019-06-07 07:08 | NUR ---
REPORT GIVEN TO DEMARCO ORONA.
[2019-06-07 07:38] LABS: BASO % 0.1 % (0.0-2.0); GRAN % 86.3 % (42.2-75.2); LYMPH # 0.9 (1.2-3.4); MEAN CELL VOLUME 85 fl (80.0-100.0); MEAN CORPUSCULAR HGB CONC 31 g/dl (33.0-37.0); MEAN PLATELET VOLUME 9.2 fl (7.4-10.4); MONO # 0.6 (0.1-0.6); MONO % 4.9 % (1.7-9.3); PLATELET COUNT 222 K/mm3 (130-400); RED BLOOD COUNT 3.73 M/mm3 (4.10-5.30); REDCELL DISTRIBUTION WIDTH-CV 15.5 % (11.5-14.5)
[2019-06-07 07:42] LABS: INR 4.8 (0.8-3.0)
[2019-06-07 07:43] LABS: HEMATOCRIT 31.7 % (37.0-47.0); HEMOGLOBIN 9.8 g/dl (12.5-16.0); MEAN CORPUSCULAR HEMOGLOBIN 26 pg (27.0-31.0)
[2019-06-07 07:46] LABS: C-REACTIVE PROTEIN 16.6 mg/dL (0.0-0.9)
[2019-06-07 07:49] LABS: CALCIUM 8.4 mg/dL (8.4-10.2); CREATININE, serum 0.71 (0.52-1.25); POTASSIUM 3.9 mmol/L (3.4-5.0)
[2019-06-07 07:50] LABS: PROTHROMBIN TIME 58.5 SECONDS (9.7-12.8)
--- NOTE | 2019-06-07 07:53 | NUR ---
CALL FROM LAB WITH PT/INR RESULTS. PT 58 INR 4.8. SEE EMAR FOR HOLD ACKNOWLEDGE TO PHARMACY ON COUMADIN SCHEDULED FOR 2100 06/07/19.
--- NOTE | 2019-06-07 07:55 | NUR ---
PATIENT C/O OF MOUTH/THROAT PAIN AND BURRING. UPON OBSERVATION ORAL MUCOSA AND THROAT PRESENTS WITH EYTHEMA AND WHITE PATCHY AREAS. SEE EMAR FOR ALBUTEROL NEBULIZER TREATMENTS AND STERIODS. PATIENT INSTRUCTED TO RINSE MOUTH AFTER NEBULIZER TREATMENTS. WILL NOTIFY HOSPITALIST ON AM ROUNDS. PATIENT AGREES WITH THIS PLAN AT THIS TIME.
--- NOTE | 2019-06-07 20:00 | NUR ---
Recieved report from DEMARCO Cunningham. Assessment complete. Pt c/o pain to low back/buttock pain that radiates down to rt leg, describes it as sciatic sharp pain. PRN pain meds administered as requested by pt. States relief. Scheduled meds administered as ordered. Pt voiding without issue, using BSC. Tele monitor in place, leads checked. Needs met. Call light within reach.
[2019-06-08 03:57] VITALS: BP 113/63; PULSE 63; TEMP 98.4
[2019-06-08 06:09] LABS: BASO % 0.1 % (0.0-2.0); EOS % 0.1 % (0-4.0); GRAN # 8.1 (1.4-6.5); GRAN % 81.1 % (42.2-75.2); HEMOGLOBIN 10.2 g/dl (12.5-16.0); LYMPH # 1.2 (1.2-3.4); LYMPH % 12.3 % (20.0-51.0); MEAN CELL VOLUME 89 fl (80.0-100.0); MEAN CORPUSCULAR HEMOGLOBIN 26 pg (27.0-31.0); MEAN CORPUSCULAR HGB CONC 30 g/dl (33.0-37.0); MEAN PLATELET VOLUME 9.4 fl (7.4-10.4); MONO # 0.6 (0.1-0.6); MONO % 5.8 % (1.7-9.3); PLATELET COUNT 238 K/mm3 (130-400); REDCELL DISTRIBUTION WIDTH-CV 15.8 % (11.5-14.5)
[2019-06-08 06:14] LABS: HEMATOCRIT 34.5 % (37.0-47.0)
[2019-06-08 06:16] LABS: INR 4.1 (0.8-3.0)
[2019-06-08 06:24] LABS: CALCIUM 8.4 mg/dL (8.4-10.2); CREATININE, serum 0.79 (0.52-1.25); POTASSIUM 4.4 mmol/L (3.4-5.0)
[2019-06-08 06:39] LABS: PROTHROMBIN TIME 50.6 SECONDS (9.7-12.8)
--- NOTE | 2019-06-08 06:39 | NUR ---
Pt c/o pain to lower back radiates to right leg, PRN pain meds administered as requested by pt. needs attended too. call light within reach.
--- NOTE | 2019-06-08 07:12 | NUR ---
Report given to DEMARCO Cunningham.
[2019-06-08 07:27] VITALS: BP 125/65; PULSE 63; TEMP 97.9
[2019-06-08] MEDS ORDERED: CIPRO 500MG TA500 MG PO (11:10)
[2019-06-08] MEDS ORDERED: NYSTATIN OR100 MU/ML PO (11:22)
[2019-06-08] MEDS ORDERED: MEDROL 4MG DOSPA4 MG PO (11:22)
[2019-06-08] MEDS ORDERED: MIRALAX510G PO (11:23)
[2019-06-08] MEDS ORDERED: NORCO 325 MG-51 TAB PO (11:34)
[2019-06-08] MEDS ORDERED: ULTRAM 50MG TAB50 MG PO (11:34)
--- NOTE | 2019-06-08 11:41 | NUR ---
The patient is to discharge back home today, 06/08, with home health services for PT/OT/SN through [facility]. SW met with the patient and presented and explained the IM form. The patient verbalized understanding, signed, and she was provided a copy. No additional needs at this time.
[2019-06-08 12:20] VITALS: BP 128/64; PULSE 90; TEMP 97.9
--- NOTE | 2019-06-08 15:42 | NUR ---
PATIENT DC TO HOME VIA PRIVATE VEHICLE ACCOMPANIED BY DAUGHTER. PRINTED DC INSTRUCTIONS REVIEWED WITH PATIENT TO INCLUDE, MEDICATIONS, FOLLOW UP APPOINTMENTS, INR CHECK, AND HOSPITAL DIAGNOSIS. ALL QUESTIONS AND CONCERNS ANSWERED. DENIES QUESTIONS OR CONCERNS AND END OF REVIEW. DC OFF FLOOR ACCOMPANIED BY THIS NURSE.
== END 2019-06-08 15:45 | disposition home health service (06) | DRG 191 ==
LOC: COL.ER → MEDICAL 14:30
PROVIDERS: Emergency Medicine; Nurse Practitioner Family; ADMIT Hospitalist
DX: J44.1 Chronic obstructive pulmonary disease with (acute) exacerbation (principal); N39.0 Urinary tract infection, site not specified; J96.11 Chronic respiratory failure with hypoxia; B37.0 Candidal stomatitis; M54.31 Sciatica, right side; I48.91 Unspecified atrial fibrillation; F41.9 Anxiety disorder, unspecified; I10 Essential (primary) hypertension; Z87.11 Personal history of peptic ulcer disease; R79.1 Abnormal coagulation profile; F17.210 Nicotine dependence, cigarettes, uncomplicated; E87.6 Hypokalemia; F32.9 Major depressive disorder, single episode, unspecified; Z88.0 Allergy status to penicillin; Z88.2 Allergy status to sulfonamides; Z88.8 Allergy status to other drugs, medicaments and biological substances; Z90.49 Acquired absence of other specified parts of digestive tract; Z79.01 Long term (current) use of anticoagulants; Z79.82 Long term (current) use of aspirin
CPT/HCPCS: 99222-AI; 99231-AI; 99232-AI; 99239; J0696; J0744; J1650; J2270; J2920; J2930; J7030; J7512

== ENCOUNTER 2020-05-27 21:42 | Emergency (ER) | payer MEDICARE, OTHER ==
[~2020-05-27] VITALS: Ht 172.7 cm; Wt 65.9 kg
[~2020-05-27 21:42] MED LIST changes: +LOPRESSOR100 MG PO; +MIRALAX510G PO; +NYSTATIN OR100 MU/ML PO; +ULTRAM 50MG TAB50 MG PO
[2020-05-27 21:45] VITALS: TEMP 98.7
[2020-05-27 22:28] LABS: HEMATOCRIT 50.6 % (37.0-47.0); HEMOGLOBIN 15.9 g/dl (12.5-16.0); MEAN CELL VOLUME 86 fl (80.0-100.0); MEAN CORPUSCULAR HEMOGLOBIN 27 pg (27.0-31.0); MEAN CORPUSCULAR HGB CONC 31 g/dl (33.0-37.0); MEAN PLATELET VOLUME 9.3 fl (7.4-10.4); PLATELET COUNT 361 K/mm3 (130-400); RED BLOOD COUNT 5.89 M/mm3 (4.10-5.30)
[2020-05-27 22:38] LABS: PROTHROMBIN TIME 81.4 SECONDS (9.7-12.8)
[2020-05-27 22:39] LABS: ALBUMIN 3.6 gm/dL (3.5-5.0); BILIRUBIN,TOTAL 0.8 mg/dL (0.0-1.0); CALCIUM 9.4 mg/dL (8.4-10.2); CREATININE, serum 1.36 (0.52-1.25); INR 7.1 (0.8-3.0); POTASSIUM 4.6 mmol/L (3.4-5.0); TOTAL PROTEIN 6.3 gm/dL (6.4-8.2)
[2020-05-27 22:52] LABS: BAND 27 % (0-10); LYMPHOCYTE 2 % (20.0-51.0); NEUTROPHILS 67 % (42.0-75.2); PLATELET ESTIMATE NORMAL (NORMAL)
[2020-05-27 22:53] LABS: ANISOCYTOSIS 1+; HYPOCHROMIA 2+
[2020-05-27 22:57] LABS: C-REACTIVE PROTEIN 15.8 mg/dL (0.0-0.9)
[2020-05-28 00:42] LABS: COLLECTION METHOD CLEAN CATCH
[2020-05-28 00:48] LABS: MUCOUS Present /lpf; PH 5 (5-8); SQUAMOUS EPITHELIAL 0-2 /hpf; URINE APPEARANCE Clear; URINE BACTERIA Occasional /hpf; URINE BILIRUBIN Negative (NEGATIVE); URINE BLOOD 1+ (NEGATIVE); URINE COLOR Amber; URINE GLUCOSE Negative (NEGATIVE); URINE KETONE Negative (NEGATIVE); URINE LEUKOCYTE ESTERASE Negative (NEGATIVE); URINE NITRATE Negative (NEGATIVE); URINE PROTEIN(semi-quant) Negative (NEGATIVE); URINE RBC 0-2 /hpf
[2020-05-28 03:40] VITALS: BP 98/54; PULSE 124
== END 2020-05-28 03:40 | disposition short-term general hospital (02) ==
LOC: COL.ER 21:42
PROVIDERS: Emergency Medicine
DX: K56.609 Unspecified intestinal obstruction, unspecified as to partial versus complete obstruction (principal); J44.1 Chronic obstructive pulmonary disease with (acute) exacerbation; I95.9 Hypotension, unspecified; D72.829 Elevated white blood cell count, unspecified; R65.21 Severe sepsis with septic shock; R79.1 Abnormal coagulation profile; I48.91 Unspecified atrial fibrillation; F41.9 Anxiety disorder, unspecified; F17.210 Nicotine dependence, cigarettes, uncomplicated; Z20.828 Contact with and (suspected) exposure to other viral communicable diseases; Z88.0 Allergy status to penicillin; Z88.2 Allergy status to sulfonamides; Z88.8 Allergy status to other drugs, medicaments and biological substances; Z79.82 Long term (current) use of aspirin
CPT/HCPCS: J0744; J2270; J2405; J2550; J3010; J3430; J7030; Q9967

== ENCOUNTER 2020-06-20 16:09 | Inpatient (IN) | payer MEDICARE, OTHER ==
[~2020-06-20] VITALS: Ht 172.7 cm; Wt 54.8 kg
[2020-06-20 17:03] LABS: BASO # 0.1 (0.0-0.2); BASO % 1.2 % (0.0-2.0); EOS % 0.1 % (0-4.0); GRAN # 5.9 (1.4-6.5); GRAN % 53.1 % (42.2-75.2); HEMATOCRIT 38.1 % (37.0-47.0); HEMOGLOBIN 11.7 g/dl (12.5-16.0); LYMPH # 3.6 (1.2-3.4); LYMPH % 32.9 % (20.0-51.0); MEAN CELL VOLUME 89 fl (80.0-100.0); MEAN CORPUSCULAR HEMOGLOBIN 27 pg (27.0-31.0); MEAN CORPUSCULAR HGB CONC 31 g/dl (33.0-37.0); MEAN PLATELET VOLUME 9.3 fl (7.4-10.4); MONO # 1.3 (0.1-0.6); MONO % 12.2 % (1.7-9.3); PLATELET COUNT 652 K/mm3 (130-400); REDCELL DISTRIBUTION WIDTH-CV 16.2 % (11.5-14.5)
[2020-06-20 17:12] LABS: ALBUMIN 3.4 gm/dL (3.5-5.0); BILIRUBIN,TOTAL 0.4 mg/dL (0.0-1.0); C-REACTIVE PROTEIN 0.8 mg/dL (0.0-0.9); CALCIUM 8.9 mg/dL (8.4-10.2); CREATININE, serum 1.06 (0.52-1.25); POTASSIUM 3.5 mmol/L (3.4-5.0); TOTAL PROTEIN 6.4 gm/dL (6.4-8.2)
[2020-06-20 17:14] LABS: INR 1.1 (0.8-3.0); PROTHROMBIN TIME 12.1 SECONDS (9.7-12.8)
[2020-06-20 21:49] VITALS: BP 114/66; PULSE 99; TEMP 98.2
[2020-06-20 21:58] VITALS: BP 114/66; PULSE 99; TEMP 98.2
[2020-06-20 23:13] VITALS: BP 112/65; PULSE 105; TEMP 97.9
--- NOTE | 2020-06-21 02:17 | NUR ---
Patient came to medical floor room 358 via hospital bed from ER at 21:30 pm. Patient A/O x4. Currently on oxygen 3L via NC. SPO2 96% on 3L via NC at this time. Patient denies SOB or dyspnea. Patient c/o aching lower back and abdominal pain 12/17. PRN [place] given at 22:18 pm. Patient c/o nauseous at 23:20 pm. PRN Zofran given for nausea. Assessment and med reconciliation done and charted. Scheduleld meds given per AUG. Right AC IV site has no s/s of complications. NS started at 125ml/hr via right AC. Patient ambulated to the bathroom with 1 person assist. C/O dizziness upon get up. Bed-side commode provided and encouraged patient to press call light upon get up to use bathroom. Patient verbalized understanding. Call light within reach. Patient denies further needs at this time.
[2020-06-21] MEDS ORDERED: REGLAN 10MG10 MG/TAB PO (03:20)
[2020-06-21 03:43] VITALS: BP 119/75; PULSE 100; TEMP 97.4
[2020-06-21 03:46] VITALS: BP 119/75; PULSE 100; TEMP 97.4
--- NOTE | 2020-06-21 05:52 | NUR ---
Patient reported pain to her abdomen and lower back is much better this morning. Denies N/V at this time. SPO2 99% on 3L via NC. No acute respiratory distress noted. Assisted patient to the bed side commode at 6am. Patient reports still feeling a little dizzy. Emptied colostomy bag. 200ml of watery brown color stool emptied at this time. Call light within reach. Patient denies further needs at this time.
[2020-06-21 07:25] VITALS: BP 126/72; PULSE 116; TEMP 97.8
--- NOTE | 2020-06-21 08:20 | NUR ---
Shift assessment complete. Pt reports nausea, low back pain 6/10, and mild abdominal cramping. Zofran and [place] administered per aug. Remains on 3L O2 NC with sats stable. Reports SOA with exertion. Colostomy with 50 mls liquid brown output. Ostomy site w/o S/S complication. Midline abdominal incision CDI, edges well approximated. Heart RRR, lungs CTA, A&Ox4. Call light in reach.
[2020-06-21 09:46] LABS: BASO % 0.5 % (0.0-2.0); GRAN # 2.3 (1.4-6.5); GRAN % 61.9 % (42.2-75.2); LYMPH # 1.2 (1.2-3.4); LYMPH % 31.4 % (20.0-51.0); MEAN CELL VOLUME 89 fl (80.0-100.0); MEAN CORPUSCULAR HGB CONC 30 g/dl (33.0-37.0); MEAN PLATELET VOLUME 9.4 fl (7.4-10.4); MONO # 0.2 (0.1-0.6); MONO % 5.7 % (1.7-9.3); RED BLOOD COUNT 3.42 M/mm3 (4.10-5.30); REDCELL DISTRIBUTION WIDTH-CV 15.8 % (11.5-14.5)
[2020-06-21 10:02] LABS: ALBUMIN 2.5 gm/dL (3.5-5.0); BILIRUBIN,TOTAL 0.3 mg/dL (0.0-1.0); CALCIUM 7.6 mg/dL (8.4-10.2); CREATININE, serum 0.69 (0.52-1.25); POTASSIUM 3.5 mmol/L (3.4-5.0)
[2020-06-21 10:31] LABS: HEMATOCRIT 30.4 % (37.0-47.0); HEMOGLOBIN 9.2 g/dl (12.5-16.0); MEAN CORPUSCULAR HEMOGLOBIN 27 pg (27.0-31.0)
[2020-06-21 10:33] LABS: PLATELET COUNT 521 K/mm3 (130-400)
[2020-06-21 11:37] VITALS: BP 115/67; PULSE 92; TEMP 97.6
--- NOTE | 2020-06-21 12:00 | NUR ---
FLUIDS DECREASED TO 75 ML/HR PER ORDERS.
[2020-06-21 16:21] VITALS: BP 121/68; PULSE 84; TEMP 98.3
[2020-06-21 20:00] VITALS: BP 126/68; PULSE 80; TEMP 98
--- NOTE | 2020-06-21 20:42 | NUR ---
Individual denied pain and or discomfort. VSS. No s/s distress noted.
--- NOTE | 2020-06-21 20:44 | NUR ---
Atempt to insert Asif to no avail.
[2020-06-21 21:30] LABS: COLLECTION METHOD CLEAN CATCH
[2020-06-21 21:36] LABS: MUCOUS Present /lpf; PH 5 (5-8); SQUAMOUS EPITHELIAL 0-2 /hpf; URINE APPEARANCE Clear; URINE BACTERIA None Seen /hpf; URINE BILIRUBIN Negative (NEGATIVE); URINE BLOOD Negative (NEGATIVE); URINE COLOR Yellow; URINE GLUCOSE Negative (NEGATIVE); URINE KETONE Negative (NEGATIVE); URINE LEUKOCYTE ESTERASE Negative (NEGATIVE); URINE NITRATE Positive (NEGATIVE); URINE PROTEIN(semi-quant) Negative (NEGATIVE); URINE RBC 0-2 /hpf; URINE UROBILINOGEN Negative (NEGATIVE)
--- NOTE | 2020-06-21 21:43 | NUR ---
Individual noted void of 100ml.
[2020-06-22 08:00] VITALS: BP 131/67; PULSE 85; TEMP 98.4
--- NOTE | 2020-06-22 08:00 | NUR ---
Assessment complete. Pt resting in bed, A&O x 3. Resp even and unlabored with O2 at 2 L/min via NC. Pt denies nausea at this time, reports intermittent dyspnea. Breath sounds CTAB. BS active to left quadrants. Pt reports achiness to back 8 out of 10, PRN medication administered per orders. Incision to midline abd with bassam in place, CDI. Colostomy bag CDI. IVF's infusing per orders through right AC site without s/s of complications. No further needs reported. CAll light in reach.
[2020-06-22 12:43] LABS: GRAN # 4.2 (1.4-6.5); GRAN % 63.7 % (42.2-75.2); HEMATOCRIT 28.1 % (37.0-47.0); HEMOGLOBIN 8.7 g/dl (12.5-16.0); LYMPH # 1.6 (1.2-3.4); LYMPH % 24.4 % (20.0-51.0); MEAN CELL VOLUME 89 fl (80.0-100.0); MEAN CORPUSCULAR HEMOGLOBIN 27 pg (27.0-31.0); MEAN CORPUSCULAR HGB CONC 31 g/dl (33.0-37.0); MEAN PLATELET VOLUME 9.7 fl (7.4-10.4); MONO # 0.8 (0.1-0.6); MONO % 11.4 % (1.7-9.3); PLATELET COUNT 483 K/mm3 (130-400); RED BLOOD COUNT 3.17 M/mm3 (4.10-5.30); REDCELL DISTRIBUTION WIDTH-CV 15.9 % (11.5-14.5)
[2020-06-22 13:14] VITALS: BP 123/69; PULSE 100; TEMP 97.8
[2020-06-22 13:45] LABS: CALCIUM 7.7 mg/dL (8.4-10.2); CREATININE, serum 0.66 (0.52-1.25); POTASSIUM 3.4 mmol/L (3.4-5.0)
--- NOTE | 2020-06-22 14:21 | NUR ---
The patient is Covid-19 positive. Foil Cutter contacted the patient via room phone to complete intake. The patient lives alone in [place]. The patient has a cane, walker, CPAP, and uses 2L of oxygen. She receives supplies from [employer]. The patient's PCP is Dr. Alvarado and patient receives medications from [facility]. The patient does not have advanced directives in the EMR. The patient does have them completed. The patient plans to return to her daughter's house for a few days at discharge. SW discussed home health services with the patient. The patient has had [facility] in the past and would like to use them again. SW faxed referral to [facility]. SW attempted to contact the patient's daughter, Sophia to discuss the discharge plan, left message.
[2020-06-22 15:56] VITALS: BP 128/66; PULSE 90; TEMP 98.3
--- NOTE | 2020-06-22 17:53 | NUR ---
Colostomy wafer and bag changed out per pt's request. 2 3/4 in (70 mm) wafer cut to 32 mm for stoma. Area cleansed and skin barrier film used prior to wafer placed. PRN pain medication administered per orders per pt's request d/t back ache. No further needs reported. Call light in reach.
[2020-06-22 20:19] VITALS: BP 128/66; PULSE 76; TEMP 98.3
[2020-06-23] VITALS (7 sets, daily range): BP systolic 127–142; BP diastolic 64–84; PULSE 76–95; TEMP 98–98.5
[2020-06-23 07:32] LABS: BASO % 0.1 % (0.0-2.0); GRAN # 8.3 (1.4-6.5); GRAN % 74.1 % (42.2-75.2); LYMPH # 1.8 (1.2-3.4); LYMPH % 16.3 % (20.0-51.0); MEAN CELL VOLUME 88 fl (80.0-100.0); MEAN CORPUSCULAR HGB CONC 31 g/dl (33.0-37.0); MEAN PLATELET VOLUME 9.5 fl (7.4-10.4); PLATELET COUNT 486 K/mm3 (130-400); REDCELL DISTRIBUTION WIDTH-CV 15.7 % (11.5-14.5)
[2020-06-23 07:36] LABS: HEMATOCRIT 29.8 % (37.0-47.0); HEMOGLOBIN 9.2 g/dl (12.5-16.0); MEAN CORPUSCULAR HEMOGLOBIN 27 pg (27.0-31.0)
[2020-06-23 07:44] LABS: ALBUMIN 2.7 gm/dL (3.5-5.0); BILIRUBIN,TOTAL 0.3 mg/dL (0.0-1.0); CALCIUM 7.9 mg/dL (8.4-10.2); CREATININE, serum 0.81 (0.52-1.25); POTASSIUM 3.2 mmol/L (3.4-5.0); TOTAL PROTEIN 5.1 gm/dL (6.4-8.2)
--- NOTE | 2020-06-23 08:14 | NUR ---
Pt assessment complete. Pt is sitting up in bed upon entry, she is A/O x4. Her breathing is even and unlabored on 2L o2 via NC. Reports SOB on exertion. Currently reporting N/V. PRN Zofran administered. Colostomy emptied, stoma pink. Edgar in place to midabdomen, edges approximated. No drainage or redness. No further needs at this time. Call light within reach.
--- NOTE | 2020-06-23 12:53 | NUR ---
Keerthi from [facility] reports they can accept the patient for home health services. The patient's daughter, Sophia contacted this Partner Marketing Manager to review the discharge plan. The patient will be staying with Sophia at discharge. [facility] is aware the patient will be discharging to Sophia's house and will visit the patient there.
--- NOTE | 2020-06-23 18:56 | NUR ---
Continued to have N/V through the day, did seem better this afternoon. No pain reported. Pt laying in bed at this time. Call light within reach.
--- NOTE | 2020-06-23 19:51 | NUR ---
At time of assessment, patient is awake in bed. She is wearing 2 liters 02 and shows no signs of increased work of breathing. Lung sounds are diminished throughout; HR is normal and regular. Right lower quadrant colostomy is draining; 100 ml of loose green/brown stool emptied at this time. Patient states she did not get much sleep last night and requests PRN Valium to facilitate rest. She states she is slightly nauseous and scheduled nausea medicine is administered. Call light in reach.
--- NOTE | 2020-06-24 02:45 | NUR ---
Patient is currently sleeping. She has not had any additional complaints of nausea. Still on 2 liters oxygen. She can transfer to [facility] independently. No new concerns.
[2020-06-24 04:20] VITALS: BP 128/76; PULSE 81; TEMP 97.3
[2020-06-24 08:59] VITALS: BP 142/78; PULSE 92; TEMP 97.4
--- NOTE | 2020-06-24 09:10 | NUR ---
Shift assessment complete. Pt resting in bed with eyes closed. Rouses easily to verbal stimulation. A&Ox4, heart RRR, lungs CTA. Does appear drowsy and kept eyes closed most of the time this RN in room. Colostomy with 75 mls loose brown output with pouch mostly full of air. Pt does report increased gas but denies N/V or pain at this time. Remains on 2L O2 NC. Right AC INT w/o S/S complication. Midline abdominal incision with bassam, open to air, site CDI. Call light in reach.
[2020-06-24 11:41] VITALS: BP 119/85; PULSE 87; TEMP 97.5
--- NOTE | 2020-06-24 11:45 | NUR ---
Pt reports feeling much improvement in nausea today and denies nausea at this time. More alert at this time than previously but does report feeling more fatigued today.
[2020-06-24 15:35] LABS: ARTERIAL BLD GAS O2 SATURATION 98.8 % (92-100); ARTERIAL BLD GAS TCO2 CT 24.1; ARTERIAL BLOOD GAS HCO3 23.1 meq/L (22-26); ARTERIAL BLOOD GAS PCO2 32.3 mmHg (35-45); ARTERIAL BLOOD GAS pH 7.47 (7.35-7.45)
[2020-06-24 16:00] VITALS: BP 129/72; PULSE 81; TEMP 98.4
--- NOTE | 2020-06-24 17:47 | NUR ---
Titrated down from 2 lpm O2 to 1 lpm. Occasional complaints of mild pain but improved. Reports improvement in nausea today. Did pass 2 small BMs from rectum, Dr. Garcia notified, states will continue to monitor but not concerned at this time as stool is believed to be residual. Colostomy with loose output today, thickened from prior days. Remdesivir and abx administered as ordered.
[2020-06-24 19:43] VITALS: BP 129/73; PULSE 87; TEMP 97.5
--- NOTE | 2020-06-24 20:00 | NUR ---
Assessment complete. Patient is alert and oriented with no complaints of nausea or pain at this time. No edema is present. RLQ colostomy is draining soft, green/brown stool; 150 ml emptied. Patient wears 1 liter oxygen and shows no sign of increased work of breathing. No new concerns, call light in reach.
[2020-06-25] VITALS (7 sets, daily range): BP systolic 120–132; BP diastolic 61–77; PULSE 81–103; TEMP 97.5–98.1
--- NOTE | 2020-06-25 06:25 | NUR ---
Patient has had a restful, uneventful night. She has had minimal complaints of nausea. She has been up to the [facility] independently to void. She remains on 1 liters oxygen with no breathing issues. Call light in reach.
[2020-06-25 07:09] LABS: BASO % 0.1 % (0.0-2.0); EOS % 0.1 % (0-4.0); GRAN % 60.7 % (42.2-75.2); LYMPH # 2.8 (1.2-3.4); LYMPH % 28.6 % (20.0-51.0); MEAN CELL VOLUME 85 fl (80.0-100.0); MEAN CORPUSCULAR HGB CONC 31 g/dl (33.0-37.0); MEAN PLATELET VOLUME 9.5 fl (7.4-10.4); MONO % 9.7 % (1.7-9.3); PLATELET COUNT 420 K/mm3 (130-400); RED BLOOD COUNT 3.39 M/mm3 (4.10-5.30); REDCELL DISTRIBUTION WIDTH-CV 15.7 % (11.5-14.5)
[2020-06-25 07:14] LABS: ALBUMIN 2.5 gm/dL (3.5-5.0); BILIRUBIN,TOTAL 0.3 mg/dL (0.0-1.0); CALCIUM 7.9 mg/dL (8.4-10.2); CREATININE, serum 0.77 (0.52-1.25); MAGNESIUM 1.6 mg/dL (1.6-2.3); POTASSIUM 3.7 mmol/L (3.4-5.0); TOTAL PROTEIN 4.8 gm/dL (6.4-8.2)
[2020-06-25 07:16] LABS: HEMATOCRIT 28.9 % (37.0-47.0); MEAN CORPUSCULAR HEMOGLOBIN 27 pg (27.0-31.0)
--- NOTE | 2020-06-25 13:36 | NUR ---
ALTAGRACIA Alfaro) consulted with Dr. Garcia and Melva. Patient has home oxygen and will not need new order. Patient will not discharge tonight per Dr. Garcia. There are no new needs at this time. Social work will continue to follow.
--- NOTE | 2020-06-25 15:23 | NUR ---
Pt assessment completed and charted, medications administered per aug. Pt A&O, independent in room, using bedside commode. Pt on 1L NC, satting well, denies chest pain, vomiting. Pt does state she has some nausea but it has improved and some SOB. Pt has RLQ colostomy bag, brown, soft output. 20G RAC INT IV flushes well w/o issue. No further needs expressed.
--- NOTE | 2020-06-25 17:36 | NUR ---
Uneventful day, pt sitting at EOB eating dinner, no complaints at this time.
--- NOTE | 2020-06-25 23:27 | NUR ---
COLOSTOMY WAFER AND BAG CHANGED.
[2020-06-26 05:38] VITALS: BP 138/77; PULSE 81; TEMP 97.9
[2020-06-26 07:33] VITALS: BP 132/65; PULSE 93; TEMP 97.7
[2020-06-26 08:08] LABS: BASO % 0.2 % (0.0-2.0); GRAN % 65.2 % (42.2-75.2); LYMPH % 24.8 % (20.0-51.0); MEAN CELL VOLUME 86 fl (80.0-100.0); MEAN CORPUSCULAR HGB CONC 32 g/dl (33.0-37.0); MEAN PLATELET VOLUME 9.6 fl (7.4-10.4); MONO # 1.1 (0.1-0.6); MONO % 8.7 % (1.7-9.3); PLATELET COUNT 390 K/mm3 (130-400); RED BLOOD COUNT 3.34 M/mm3 (4.10-5.30); REDCELL DISTRIBUTION WIDTH-CV 15.6 % (11.5-14.5)
[2020-06-26 08:18] LABS: HEMATOCRIT 28.8 % (37.0-47.0); HEMOGLOBIN 9.2 g/dl (12.5-16.0); MEAN CORPUSCULAR HEMOGLOBIN 28 pg (27.0-31.0)
[2020-06-26 08:24] LABS: CREATININE, serum 0.72 (0.52-1.25); POTASSIUM 3.6 mmol/L (3.4-5.0)
--- NOTE | 2020-06-26 10:07 | NUR ---
Pt assessment completed and charted, medications administered per aug. Pt A&O, independent in room, on 1L NC, satting well, LS improved. HRRR. Pt denies N/V/D, dizziness, SOB, chest pain. Pt has RAC INT IV that flushes w/o issue. RLQ colostomy present, liquid brown stool at this time, per nightshift, bag changed. NO complaints expressed at this time.
[2020-06-26] MEDS ORDERED: DECADRON6 MG PO (10:48)
[2020-06-26] MEDS ORDERED: TIAZAC120 MG PO (11:16)
[2020-06-26] MEDS ORDERED: LOPRESSOR 550 MG/TAB PO (11:17)
[2020-06-26 11:53] VITALS: BP 116/79; PULSE 97; TEMP 98
--- NOTE | 2020-06-26 14:09 | NUR ---
Patient will discharge today. SW faxed discharge records to [facility] in [place]. SW attempted to contact [facility]. There was no response.
--- NOTE | 2020-06-26 14:09 | NUR ---
Patient valuables removed from HS safe and given to DEMARCO Solis prior to discharge.
--- NOTE | 2020-06-26 17:57 | NUR ---
Discharge instructions discussed and reviewed w/ pt who verbalized understanding. Med changes reviewed, pt verbalized understanding. RF INT IV dc'd w/ cath tip intact and no issues. Pt escorted out via WC by this nurse and MARIE Braga. Pt had belongings placed in safe upon admission, belongings returned to patient. No further needs expressed, all questions answered.
== END 2020-06-26 16:15 | disposition home health service (06) | DRG 177 ==
LOC: COL.ER 16:09 → MEDICAL 19:19
PROVIDERS: Emergency Medicine; Physician Assistant; Student in an Organized Health Care Education/Training Program; ADMIT Student in an Organized Health Care Education/Training Program
PROC: XW033E5 Introduction of Remdesivir Anti-infective into Peripheral Vein, Percutaneous Approach, New Technology Group 5 (ICD-10-PCS; principal; 2020-06-20)
DX: U07.1 COVID-19 (principal); J96.21 Acute and chronic respiratory failure with hypoxia; B37.0 Candidal stomatitis; K91.872 Postprocedural seroma of a digestive system organ or structure following a digestive system procedure; J44.9 Chronic obstructive pulmonary disease, unspecified; M54.31 Sciatica, right side; I48.91 Unspecified atrial fibrillation; F41.9 Anxiety disorder, unspecified; F32.9 Major depressive disorder, single episode, unspecified; K27.9 Peptic ulcer, site unspecified, unspecified as acute or chronic, without hemorrhage or perforation; Z93.3 Colostomy status; Z88.0 Allergy status to penicillin; Z88.2 Allergy status to sulfonamides
CPT/HCPCS: 99223-AI; 99232-AI; 99233-AI; 99239; J0696; J1100; J1650; J1956; J2405; J2550; J7030; J7050; J8540; Q9967

== ENCOUNTER 2020-07-28 14:45 | Inpatient (IN) | payer MEDICARE, OTHER ==
[~2020-07-28] VITALS: Ht 172.7 cm; Wt 54.5 kg
[~2020-07-28 14:45] MED LIST changes: +DECADRON6 MG PO; +LOPRESSOR 550 MG/TAB PO; +REGLAN 10MG10 MG/TAB PO
[2020-07-28 15:05] LABS: BASO # 0.1 (0.0-0.2); EOS # 0.1 (0.0-0.7); EOS % 0.9 % (0-4.0); GRAN % 67.4 % (42.2-75.2); HEMOGLOBIN 10.7 g/dl (12.5-16.0); LYMPH # 3.2 (1.2-3.4); LYMPH % 24.4 % (20.0-51.0); MEAN CELL VOLUME 84 fl (80.0-100.0); MEAN CORPUSCULAR HEMOGLOBIN 26 pg (27.0-31.0); MEAN CORPUSCULAR HGB CONC 31 g/dl (33.0-37.0); MEAN PLATELET VOLUME 9.7 fl (7.4-10.4); MONO # 0.8 (0.1-0.6); MONO % 5.9 % (1.7-9.3); PLATELET COUNT 465 K/mm3 (130-400); RED BLOOD COUNT 4.11 M/mm3 (4.10-5.30); REDCELL DISTRIBUTION WIDTH-CV 16.1 % (11.5-14.5)
[2020-07-28 15:06] LABS: HEMATOCRIT 34.6 % (37.0-47.0)
[2020-07-28 15:18] LABS: ALANINE AMINOTRANSFERASE 13 U/L (4-34); ALBUMIN 3.4 gm/dL (3.5-5.0); ALKALINE PHOSPHATASE 74 U/L (50-136); ANION GAP 7 mmol/L (7-16); AST,SGOT 23 U/L (15-37); BILIRUBIN,TOTAL 0.4 mg/dL (0.0-1.0); BLOOD UREA NITROGEN 11 mg/dL (7-17); C-REACTIVE PROTEIN 0.6 mg/dL (0.0-0.9); CALCIUM 9.1 mg/dL (8.4-10.2); CARBON DIOXIDE 30 mmol/L (22-30); CHLORIDE 100 mmol/L (98-107); CREATININE, serum 0.79 (0.52-1.25); GLUCOSE 95 mg/dL (74-106); POTASSIUM 4.3 mmol/L (3.4-5.0); SODIUM 136 mmol/L (137-145); TOTAL PROTEIN 6.1 gm/dL (6.4-8.2)
[2020-07-28 15:27] LABS: ARTERIAL BLD GAS O2 SATURATION 99.1 % (92-100); ARTERIAL BLD GAS TCO2 CT 27.6; ARTERIAL BLOOD GAS BASE EXCESS 0.4 (-2-2); ARTERIAL BLOOD GAS HCO3 26.2 meq/L (22-26); ARTERIAL BLOOD GAS PCO2 47.3 mmHg (35-45); ARTERIAL BLOOD GAS PO2 188.4 mmHg (80-100); ARTERIAL BLOOD GAS pH 7.36 (7.35-7.45)
[2020-07-28 15:34] LABS: TROPONIN-I < 0.012 ng/mL (0.000-0.035)
[2020-07-28] MEDS ORDERED: COUMADIN 22.5 MG/TAB PO (21:05)
--- NOTE | 2020-07-28 21:05 | NUR ---
Patient up from ER. Alert and oriented x 3. Assessment complete. Patient oriented to room. INT to right AC without complications. On 2 L O2 Via NC. Contacted Melva MAGALLANES for Tele orders. Bipap at bedside. Ostomy to RLQ with loose crowley stool present. Patient denies needs at this time.
[2020-07-28 21:06] VITALS: BP 102/66; PULSE 118; TEMP 97.4
--- NOTE | 2020-07-28 21:30 | NUR ---
Contacted Melva MAGALLANES for diet order and provide patient with rylie cat.
[2020-07-28 23:15] LABS: INR 2.8 (0.8-3.0); PROTHROMBIN TIME 31.7 SECONDS (9.7-12.8)
[2020-07-28 23:31] VITALS: BP 107/62; PULSE 121; TEMP 97.4
--- NOTE | 2020-07-28 23:41 | NUR ---
Patient up to restroom, states that she feels as if though she needs to void and is unable to do so when when is up to restroom. Patient states that the last time she was able to void was when she was in the ER. Bladder scanned for 200ml. Will monitor.
--- NOTE | 2020-07-29 00:33 | NUR ---
Patient up to restroom, voiding without difficulties. Ostomy appliance changed at this time. No further needs at this time.
--- NOTE | 2020-07-29 01:25 | NUR ---
Patient called out to nurses station, states she is having generalized pain and would like something for pain. Contacted Melva MAGALLANES for orders.
[2020-07-29 05:20] VITALS: BP 105/63; PULSE 118; TEMP 97.5
--- NOTE | 2020-07-29 06:08 | NUR ---
Patient doing well throughout the night. Minimal needs. Remains on 2L of O2 via NC. Denies pain at this time. Denies further needs at this time. Will report off to day shift.
--- NOTE | 2020-07-29 06:55 | NUR ---
awake and cardiouplmonary in providing SVN treatment, bedside shift report received from DEMARCO Byrd
[2020-07-29 07:14] LABS: ANION GAP 5 mmol/L (7-16); BLOOD UREA NITROGEN 14 mg/dL (7-17); CALCIUM 8.8 mg/dL (8.4-10.2); CARBON DIOXIDE 27 mmol/L (22-30); CHLORIDE 102 mmol/L (98-107); CREATININE, serum 0.84 (0.52-1.25); GLUCOSE 165 mg/dL (74-106); POTASSIUM 3.5 mmol/L (3.4-5.0); SODIUM 134 mmol/L (137-145)
[2020-07-29 07:18] LABS: BASO % 0.1 % (0.0-2.0); GRAN # 9.7 (1.4-6.5); GRAN % 87.1 % (42.2-75.2); LYMPH % 9.3 % (20.0-51.0); MEAN CELL VOLUME 85 fl (80.0-100.0); MEAN CORPUSCULAR HGB CONC 31 g/dl (33.0-37.0); MEAN PLATELET VOLUME 10.3 fl (7.4-10.4); MONO # 0.3 (0.1-0.6); MONO % 2.6 % (1.7-9.3); PLATELET COUNT 448 K/mm3 (130-400); RED BLOOD COUNT 3.66 M/mm3 (4.10-5.30); REDCELL DISTRIBUTION WIDTH-CV 16.3 % (11.5-14.5)
[2020-07-29 07:20] LABS: HEMOGLOBIN 9.6 g/dl (12.5-16.0); MEAN CORPUSCULAR HEMOGLOBIN 26 pg (27.0-31.0)
--- NOTE | 2020-07-29 07:25 | NUR ---
appears to be sleeping, awakened and full assessment completed, see interventions for further info, O2 on at 2L/NC, denies pain or needs
[2020-07-29 07:28] LABS: TROPONIN-I < 0.012 ng/mL (0.000-0.035)
--- NOTE | 2020-07-29 08:15 | NUR ---
awake and meds given, breakfast ordered, denies needs
[2020-07-29 09:00] VITALS: BP 126/61; PULSE 129; TEMP 98
--- NOTE | 2020-07-29 09:16 | NUR ---
called by it service technician that patient's heart rate was SVT, entered room and occupational therapy in with patient and she is up to bathroom, she does state that she feels her heart is beating fast and has some dyspnea with exertion, assisted back to bed, it service technician notified and she states heart is starting to slow
--- NOTE | 2020-07-29 10:27 | NUR ---
c/o nausea and medicate with zofran 4mg slow IV, resting in bed watching TV
--- NOTE | 2020-07-29 11:25 | NUR ---
appears to be dozing, awakened and states that zofran helped her nausea
--- NOTE | 2020-07-29 12:16 | NUR ---
continues to doze, awakened form meds and lunch ordered
[2020-07-29 12:53] VITALS: BP 114/63; PULSE 122; TEMP 98.6
--- NOTE | 2020-07-29 14:30 | NUR ---
ambulating in magana with physical therapy
--- NOTE | 2020-07-29 14:50 | NUR ---
speech therapy in to work with patient
--- NOTE | 2020-07-29 14:57 | NUR ---
Retort Condenser Attendant met with patient to discuss discharge planning. Patient lives alone in [place] and sees Dr. Braswell for primary care. Patient has most of her medications mailed from [facility] and uses [facility] as needed. Patient reports no difficulties in obtaining her medications. Patient has a cane and walker at home but reports she normally doesn't use them. Patient does report recent difficulty completing ADLS and that she has [employer]. Patient states she doesn't feel like they help her all that much. SW discussed Inpatient Rehab with patient as OT/PT felt like she would benefit. SW gave referral to Ash[facility], [facility] Director who advised they could not admit until Saturday. Patient states she would try to return home with continued services if [facility] cannot take. Patient is and her legal next of kin are her children, Sophia (ph#[phone]) and Dangelo. Patient believes Sophia is her DPOA but SW did not locate copy in EMR. ALTAGRACIA contacted Keerthi at [facility] who confirmed they provide services to patient. ALTAGRACIA faxed clinical updates. ALTAGRACIA attempted to contact patient's daughter, Sophia and left a message. ALTAGRACIA will continue to follow.
--- NOTE | 2020-07-29 16:35 | NUR ---
Fiscal Agent spoke with patient's daughter, Sophia about discharge planning. Sophia feels patient would benefit from rehab either at [facility] or at SNF as patient was recently at [facility] and has spent a lot of time in the hospital. Sophia states patient has had some depression and struggled with motivation. ALTAGRACIA followed up with patient who is agreeable to have SNF referrals sent in case [facility] cannot take. Patient would like referrals [facility] to [facility]. SW faxed referrals.
[2020-07-29 17:12] VITALS: BP 100/62; PULSE 94; TEMP 98.5
--- NOTE | 2020-07-29 17:30 | NUR ---
resting in bed with TV on, denies needs
--- NOTE | 2020-07-29 18:54 | NUR ---
bedside shift report given to DEMARCO Ivy
[2020-07-29 20:00] VITALS: BP 119/58; PULSE 108; TEMP 98
--- NOTE | 2020-07-29 22:56 | NUR ---
Awake, Alert, oriented x 4, able to make all needs known, resting quietly in bed, generalized weakness, respirations even and unlabored, maintaining O2 sats on 2L per NC w/o issue, VS stable, updated on plan of care.
[2020-07-30] VITALS (7 sets, daily range): BP systolic 99–127; BP diastolic 52–66; PULSE 73–111; TEMP 97.6–98.5
[2020-07-30 06:43] LABS: MEAN CELL VOLUME 86 fl (80.0-100.0); MEAN CORPUSCULAR HGB CONC 31 g/dl (33.0-37.0); MEAN PLATELET VOLUME 9.9 fl (7.4-10.4); PLATELET COUNT 397 K/mm3 (130-400); RED BLOOD COUNT 3.51 M/mm3 (4.10-5.30); REDCELL DISTRIBUTION WIDTH-CV 16.9 % (11.5-14.5)
[2020-07-30 06:53] LABS: HEMATOCRIT 30.2 % (37.0-47.0); HEMOGLOBIN 9.3 g/dl (12.5-16.0); MEAN CORPUSCULAR HEMOGLOBIN 26 pg (27.0-31.0)
[2020-07-30 06:56] LABS: CALCIUM 9.1 mg/dL (8.4-10.2); CREATININE, serum 0.78 (0.52-1.25); INR 2.5 (0.8-3.0); POTASSIUM 4.5 mmol/L (3.4-5.0)
[2020-07-30 08:00] LABS: MEAN CELL VOLUME 88 fl (80.0-100.0); MEAN CORPUSCULAR HGB CONC 31 g/dl (33.0-37.0); MEAN PLATELET VOLUME 10.7 fl (7.4-10.4); PLATELET COUNT 400 K/mm3 (130-400); RED BLOOD COUNT 3.45 M/mm3 (4.10-5.30); REDCELL DISTRIBUTION WIDTH-CV 16.9 % (11.5-14.5)
--- NOTE | 2020-07-30 08:02 | NUR ---
pt assessment complete. Pt is laying in bed upon entry, she is A/O x4. Her breathing is even and unlabored on 2L O2 via NC. Pt feels her breathing has improved from admit. No SOB at this time. Currently denies any pain. Denies N/V. Ostomy bag in place, stoma pink. IVF infusing without issues. Call light within reach.
[2020-07-30 08:03] LABS: HEMATOCRIT 30.2 % (37.0-47.0); HEMOGLOBIN 9.2 g/dl (12.5-16.0); MEAN CORPUSCULAR HEMOGLOBIN 27 pg (27.0-31.0)
[2020-07-30 08:58] LABS: BAND 4 % (0-10); LYMPHOCYTE 2 % (20.0-51.0); NEUTROPHILS 91 % (42.0-75.2)
[2020-07-30 08:59] LABS: ANISOCYTOSIS 2+; BURR CELLS 1+; HYPOCHROMIA 1+; OVALOCYTES 1+; PLATELET ESTIMATE NORMAL (NORMAL)
--- NOTE | 2020-07-30 13:17 | NUR ---
First visit from the draw press operator. No needs right now.
--- NOTE | 2020-07-30 18:23 | NUR ---
Pt resting in bed. Currently on 2L O2 via NC. Ostomy in place. Call light within reach. Will continue to monitor.
--- NOTE | 2020-07-30 19:30 | NUR ---
Awake, alert, oriented x 4, able to make needs known, colostomy bag c/d/i with soft brown stool, updated patient on plan of care, no s/s of hypoxia or respiratory difficulty, O2@2L per NC in use.
[2020-07-31 03:59] VITALS: BP 127/64; PULSE 73; TEMP 98.4
[2020-07-31 06:37] LABS: CALCIUM 8.5 mg/dL (8.4-10.2); CREATININE, serum 0.75 (0.52-1.25); INR 2.7 (0.8-3.0); PROTHROMBIN TIME 30.6 SECONDS (9.7-12.8)
[2020-07-31 06:38] LABS: MEAN CELL VOLUME 86 fl (80.0-100.0); MEAN CORPUSCULAR HGB CONC 30 g/dl (33.0-37.0); MEAN PLATELET VOLUME 10.6 fl (7.4-10.4); PLATELET COUNT 378 K/mm3 (130-400); RED BLOOD COUNT 3.24 M/mm3 (4.10-5.30); REDCELL DISTRIBUTION WIDTH-CV 16.9 % (11.5-14.5)
[2020-07-31 06:53] LABS: HEMATOCRIT 27.7 % (37.0-47.0); HEMOGLOBIN 8.4 g/dl (12.5-16.0); MEAN CORPUSCULAR HEMOGLOBIN 26 pg (27.0-31.0)
[2020-07-31 08:00] VITALS: BP 126/66; PULSE 88; TEMP 97.6
[2020-07-31 08:32] LABS: ANISOCYTOSIS 1+; BURR CELLS 1+; LYMPHOCYTE 19 % (20.0-51.0); NUCLEATED RED BLOOD CELL 1 (0-6); PLATELET ESTIMATE NORMAL (NORMAL)
[2020-07-31 08:33] LABS: HYPOCHROMIA 2+; NEUTROPHILS 75 % (42.0-75.2); OVALOCYTES 1+; TARGET CELLS 1+
--- NOTE | 2020-07-31 08:33 | NUR ---
Pt assessment complete, pt laying in bed upon entry. She is A/O x3 her breathing is even and unlabored on 2L O2 via NC, she denies SOB. No SOB on exertion, denies cough. States her legs feel weak when ambulating, pt encouraged to get out of bed today. Reporting lower back pain, PRN Tylenol administered. Colostomy emptied, stoma pink. No further needs, at this time. Call light within reach.
[2020-07-31 08:35] LABS: HOWELL-JOLLY BODIES 1+
[2020-07-31 11:40] VITALS: BP 127/76; PULSE 79; TEMP 97.4
--- NOTE | 2020-07-31 11:54 | NUR ---
Patient may discharge 08/01. Waiting on referral acceptance at this time.
[2020-07-31 16:42] VITALS: BP 121/63; PULSE 89; TEMP 97.9
--- NOTE | 2020-07-31 18:31 | NUR ---
Pt continued to report low back pain despite medication and Tylenol. Breathing back to baseline. Awaiting I[facility] screen at this time.
--- NOTE | 2020-07-31 18:52 | NUR ---
Pt had uneventful day. Continued to report low back pain despite K pad and Tylenol. Breathing at baseline with 2L O2 via NC. Awaiting IPR screen at this time.
--- NOTE | 2020-07-31 19:25 | NUR ---
Sitting in bed, encouraging po intake, encouraging mobility, patient is independent with ambulation- states that she ambulated in hallway twice today, states that she is comfortable in regards to pain in back/legs, uses call light appropriately, snack offered
[2020-07-31 19:46] VITALS: BP 108/62; PULSE 94; TEMP 97.9
--- NOTE | 2020-07-31 22:50 | NUR ---
Patient lacks motivation, encouragement to participate in care continues, assisted in emptying colostomy- patient still feels unsure of how to care for it herself, O2@2L per NC tolerated well, updated on plan of care. States that pain is less since she sat up in chair today and ambulated in hallway.
[2020-07-31 23:50] VITALS: BP 108/59; PULSE 88; TEMP 98
[2020-08-01 04:03] VITALS: BP 133/66; PULSE 72; TEMP 97.9
[2020-08-01 06:50] LABS: BASO % 0.1 % (0.0-2.0); EOS % 0.2 % (0-4.0); GRAN # 12.2 (1.4-6.5); GRAN % 69.4 % (42.2-75.2); LYMPH # 3.8 (1.2-3.4); LYMPH % 21.6 % (20.0-51.0); MEAN CELL VOLUME 85 fl (80.0-100.0); MEAN CORPUSCULAR HGB CONC 31 g/dl (33.0-37.0); MEAN PLATELET VOLUME 10.3 fl (7.4-10.4); MONO # 1.3 (0.1-0.6); MONO % 7.5 % (1.7-9.3); PLATELET COUNT 377 K/mm3 (130-400); RED BLOOD COUNT 3.24 M/mm3 (4.10-5.30); REDCELL DISTRIBUTION WIDTH-CV 16.8 % (11.5-14.5)
[2020-08-01 07:06] LABS: CALCIUM 8.5 mg/dL (8.4-10.2); CREATININE, serum 0.81 (0.52-1.25); POTASSIUM 3.9 mmol/L (3.4-5.0)
[2020-08-01 07:38] LABS: HEMATOCRIT 27.5 % (37.0-47.0); HEMOGLOBIN 8.5 g/dl (12.5-16.0); MEAN CORPUSCULAR HEMOGLOBIN 26 pg (27.0-31.0)
[2020-08-01 07:50] VITALS: BP 123/63; PULSE 98; TEMP 98
--- NOTE | 2020-08-01 07:54 | NUR ---
Pt sleeping upon entry to room, easily awakened. Some C/O back pain. Shift assessments complete, left Pt call light in reach, bed in lowest position.
[2020-08-01] MEDS ORDERED: LOPRESSOR 225 MG/TAB PO (08:53)
[2020-08-01] MEDS ORDERED: PREDNISONE20 MG PO (08:54)
--- NOTE | 2020-08-01 09:40 | NUR ---
Initial visit; Patient thanked Dining Room Host/Hostess for looking in on her, offering God's blessings and keeping her in Dining Room Host/Hostess's prayers.
--- NOTE | 2020-08-01 11:23 | NUR ---
[employer] Torque Tester faxed clinical updates to [facility]. ALTAGRACIA collaborated with Asha, [facility] Director who advised she met with patient and patient's first preference is to go to [facility]. [facility]a can accept and plan will be for discharge to [facility] tomorrow. ALTAGRACIA will continue to follow.
[2020-08-01 12:40] VITALS: BP 123/64; PULSE 86; TEMP 98.1
--- NOTE | 2020-08-01 13:30 | NUR ---
Pt off floor for MRI.
[2020-08-01 16:56] VITALS: BP 121/66; PULSE 101; TEMP 98.5
--- NOTE | 2020-08-01 17:06 | NUR ---
Replaced ostomy wafer, cleaned area around stoma, measured and trimmed wafer to size, applied ostomy barrier paste to underside of wafer and applied wafer, replaced collection bag.
--- NOTE | 2020-08-01 19:38 | NUR ---
Awake, alert, oriented x 3, denies c/o at this time, reported that she showered today and ambulated in hallway- encouragement continues, reviewed new order for melatonin with patient and updated on plan of care.
[2020-08-01 20:50] VITALS: BP 115/64; PULSE 109; TEMP 98.8
[2020-08-02 00:37] VITALS: BP 101/59; PULSE 77; TEMP 98
[2020-08-02 05:13] VITALS: BP 108/72; PULSE 75; TEMP 98.1
[2020-08-02 07:24] LABS: BASO % 0.1 % (0.0-2.0); CALCIUM 8.5 mg/dL (8.4-10.2); CREATININE, serum 0.71 (0.52-1.25); EOS # 0.1 (0.0-0.7); GRAN # 7.6 (1.4-6.5); GRAN % 56.8 % (42.2-75.2); LYMPH # 4.4 (1.2-3.4); MEAN CELL VOLUME 85 fl (80.0-100.0); MEAN CORPUSCULAR HGB CONC 31 g/dl (33.0-37.0); MEAN PLATELET VOLUME 10.1 fl (7.4-10.4); MONO # 1.1 (0.1-0.6); PLATELET COUNT 338 K/mm3 (130-400); RED BLOOD COUNT 3.22 M/mm3 (4.10-5.30); REDCELL DISTRIBUTION WIDTH-CV 16.9 % (11.5-14.5)
[2020-08-02 07:25] LABS: HEMATOCRIT 27.5 % (37.0-47.0); HEMOGLOBIN 8.4 g/dl (12.5-16.0); MEAN CORPUSCULAR HEMOGLOBIN 26 pg (27.0-31.0)
[2020-08-02 07:28] VITALS: BP 109/61; PULSE 87; TEMP 98.1
--- NOTE | 2020-08-02 08:21 | NUR ---
Pt awake upon entry, no C/O pain at this time. Shift assessments complete, left Pt call light in reach, bed in lowest position.
[2020-08-02 11:31] VITALS: BP 134/61; PULSE 90; TEMP 98.6
--- NOTE | 2020-08-02 13:53 | NUR ---
Gear Grinding Machine Operator collaborated with Asha, [facility] Director who advised due to high census, she would not be able to accept patient at this time and patient is ready for discharge today. ALTAGRACIA contacted Sharon at [facility] and faxed updates as Sharon notified ALTAGRACIA yesterday that they can accept. ALTAGRACIA met with patient who expressed she was disappointed [facility] could not take her, however was agreeable to go to [facility] since [facility] could not accept. ALTAGRACIA collaborated again with Sharon who advised they can accept today and would not need a new COVID test as patient tested positive in June and is no longer in contact isolation. ALTAGRACIA faxed positive results from June. ALTAGRACIA and Sharon set transport time for 1345. ALTAGRACIA met with patient again to provide transport time. Patient had her daughter, Sophia on the phone and Sophia is in agreement with discharge to [facility]. ALTAGRACIA then contacted [facility] and notified them that patient will discharge to [facility] today. ALTAGRACIA faxed discharge orders to [facility]. No additional needs at this time.
--- NOTE | 2020-08-02 14:30 | NUR ---
Pt discharged to [facility], escorted Pt to entrance, Pt left by [facility] transportation.
== END 2020-08-02 14:30 | DRG 190 ==
LOC: COL.ER 14:45 → MEDICAL 19:00
PROVIDERS: Family Medicine; Nurse Practitioner; Physician Assistant; ADMIT Student in an Organized Health Care Education/Training Program
PROC: 5A09357 Assistance with Respiratory Ventilation, Less than 24 Consecutive Hours, Continuous Positive Airway Pressure (ICD-10-PCS; principal; 2020-07-28)
DX: J44.1 Chronic obstructive pulmonary disease with (acute) exacerbation (principal); J96.21 Acute and chronic respiratory failure with hypoxia; E44.0 Moderate protein-calorie malnutrition; Z68.1 Body mass index [BMI] 19.9 or less, adult; R07.89 Other chest pain; F32.9 Major depressive disorder, single episode, unspecified; F41.9 Anxiety disorder, unspecified; I48.91 Unspecified atrial fibrillation; D64.9 Anemia, unspecified; F17.210 Nicotine dependence, cigarettes, uncomplicated; D47.3 Essential (hemorrhagic) thrombocythemia; R53.1 Weakness; R00.0 Tachycardia, unspecified; Z86.16 Personal history of COVID-19; R91.1 Solitary pulmonary nodule; Z79.01 Long term (current) use of anticoagulants; Z79.82 Long term (current) use of aspirin; Z93.3 Colostomy status; Z99.81 Dependence on supplemental oxygen
CPT/HCPCS: OP; 99223-AI; 99231-AI; 99232-AI; 99233-AI; 99239; G0378; J0692; J1956; J2060; J2270; J2405; J2920; J2930; J7030; J7512

== ENCOUNTER 2020-09-15 13:58 | Observation (INO) | payer MEDICARE, OTHER ==
[~2020-09-15] VITALS: Ht 172.7 cm; Wt 56.8 kg
[~2020-09-15 13:58] MED LIST changes: +LOPRESSOR 225 MG/TAB PO
[2020-09-15 15:09] LABS: BASO # 0.2 (0.0-0.2); BASO % 0.8 % (0.0-2.0); EOS # 0.1 (0.0-0.7); EOS % 0.3 % (0-4.0); GRAN # 14.7 (1.4-6.5); GRAN % 81.7 % (42.2-75.2); HEMOGLOBIN 10.6 g/dl (12.5-16.0); LYMPH % 11.1 % (20.0-51.0); MEAN CELL VOLUME 83 fl (80.0-100.0); MEAN CORPUSCULAR HEMOGLOBIN 25 pg (27.0-31.0); MEAN CORPUSCULAR HGB CONC 30 g/dl (33.0-37.0); MEAN PLATELET VOLUME 9.6 fl (7.4-10.4); MONO % 5.7 % (1.7-9.3); PLATELET COUNT 475 K/mm3 (130-400); RED BLOOD COUNT 4.32 M/mm3 (4.10-5.30); REDCELL DISTRIBUTION WIDTH-CV 17.6 % (11.5-14.5)
[2020-09-15 15:11] LABS: HEMATOCRIT 35.9 % (37.0-47.0)
[2020-09-15 15:22] LABS: ALBUMIN 4.1 gm/dL (3.5-5.0); BILIRUBIN,TOTAL 0.4 mg/dL (0.0-1.0); C-REACTIVE PROTEIN 2.2 mg/dL (0.0-0.9); CALCIUM 9.3 mg/dL (8.4-10.2); CREATININE, serum 0.93 (0.52-1.25); POTASSIUM 3.9 mmol/L (3.4-5.0); TOTAL PROTEIN 7.3 gm/dL (6.4-8.2)
[2020-09-15 17:20] LABS: COLLECTION METHOD CLEAN CATCH
[2020-09-15 17:31] LABS: MUCOUS Present /lpf; PH 6 (5-8); SQUAMOUS EPITHELIAL None Seen /hpf; URINE APPEARANCE Clear; URINE BACTERIA None Seen /hpf; URINE BILIRUBIN Negative (NEGATIVE); URINE BLOOD 1+ (NEGATIVE); URINE COLOR Yellow; URINE GLUCOSE Negative (NEGATIVE); URINE KETONE Trace (NEGATIVE); URINE LEUKOCYTE ESTERASE Negative (NEGATIVE); URINE NITRATE Negative (NEGATIVE); URINE PROTEIN(semi-quant) Negative (NEGATIVE); URINE RBC 0-2 /hpf; URINE UROBILINOGEN Negative (NEGATIVE)
--- NOTE | 2020-09-15 19:15 | NUR ---
PAtient up from ED via stretcher. Oriented to room and call light. Med rec and admission complete. Patient has complaints of pain to her back and neck and says she feels dizzy.
[2020-09-15 19:52] VITALS: BP 121/62; PULSE 90; TEMP 97.3
[2020-09-15 20:31] LABS: CHOLESTEROL RISK RATIO 4.2
--- NOTE | 2020-09-15 21:00 | NUR ---
Orders for tylenol. Patient given tylenol and a snack. PAtient up to bathroom with one assist.
[2020-09-15 21:07] LABS: THYROID STIMULATING HORMONE 0.481 uIU/mL (0.465-4.680)
[2020-09-15 21:19] LABS: INR 1.6 (0.8-3.0); PROTHROMBIN TIME 18.1 SECONDS (9.7-12.8)
[2020-09-16] VITALS (8 sets, daily range): BP systolic 97–123; BP diastolic 54–70; PULSE 71–95; TEMP 97.6–98.2
[2020-09-16 06:00] LABS: BASO # 0.2 (0.0-0.2); BASO % 1.8 % (0.0-2.0); EOS # 0.5 (0.0-0.7); EOS % 5.1 % (0-4.0); GRAN # 5.7 (1.4-6.5); GRAN % 56.8 % (42.2-75.2); LYMPH # 2.4 (1.2-3.4); LYMPH % 24.4 % (20.0-51.0); MEAN CELL VOLUME 83 fl (80.0-100.0); MEAN CORPUSCULAR HGB CONC 30 g/dl (33.0-37.0); MEAN PLATELET VOLUME 9.9 fl (7.4-10.4); MONO # 1.2 (0.1-0.6); MONO % 11.6 % (1.7-9.3); PLATELET COUNT 431 K/mm3 (130-400); RED BLOOD COUNT 3.56 M/mm3 (4.10-5.30); REDCELL DISTRIBUTION WIDTH-CV 17.8 % (11.5-14.5)
[2020-09-16 06:06] LABS: HEMATOCRIT 29.6 % (37.0-47.0); HEMOGLOBIN 8.8 g/dl (12.5-16.0); MEAN CORPUSCULAR HEMOGLOBIN 25 pg (27.0-31.0)
[2020-09-16 06:08] LABS: ANION GAP 5 mmol/L (7-16); BLOOD UREA NITROGEN 11 mg/dL (7-17); CALCIUM 8.8 mg/dL (8.4-10.2); CARBON DIOXIDE 32 mmol/L (22-30); CHLORIDE 101 mmol/L (98-107); CREATININE, serum 0.91 (0.52-1.25); GLUCOSE 90 mg/dL (74-106); POTASSIUM 4.1 mmol/L (3.4-5.0); SODIUM 138 mmol/L (137-145)
[2020-09-16 06:14] LABS: INR 1.6 (0.8-3.0); PROTHROMBIN TIME 17.8 SECONDS (9.7-12.8)
[2020-09-16 06:20] LABS: TROPONIN-I < 0.012 ng/mL (0.000-0.035)
--- NOTE | 2020-09-16 07:41 | NUR ---
Radiology in for Echo.
--- NOTE | 2020-09-16 08:34 | NUR ---
Patient up to restroom, SBA with steady gait. Patient states pain to back and neck. Ostomy noted, patient states has been in place for 3 months. Hemeoccult collected at this time. On 2 L of oxygen via NC. Student RN assisting with cares. Denies furhter needs at this time.
--- NOTE | 2020-09-16 09:13 | NUR ---
Initial visit; Patient thanked Yarn Dumper for looking in on her and offering God's blessings. Patient states she has no spiritual needs at this time.
[2020-09-16] MEDS ORDERED: COUMADIN 22.5 MG/TAB PO (11:05)
--- NOTE | 2020-09-16 11:16 | NUR ---
ALTAGRACIA attended clinical rounds. The patient may be able to d/c tomorrow, 09/17. ALTAGRACIA then followed up with the patient to discuss discharge plan. The patient lives alone in [place]. She reports independence with ADLs and has a cane, walker, and home oxygen from [employer]. She receives home health services from [facility] for assisted/PT/OT. ALTAGRACIA contacted and confirmed services from [facility] at [facility]. ALTAGRACIA also faxed updates and notified [facility] of the patient's tentative d/c tomorrow. The patient's PCP is Dr. Chirag Braswell and she receives her medications from [facility]. She reports no difficulties obtaining her meds. The patient does not have a DPOA-HC in EMR, but she states that she does have one completed and that she designated her daughter, Sophia (#[phone]). She states that Sophia has a copy of the DPOA-HC. Sophia lives in [place]. The patient is and she has two living children: Sophia and Dangelo. The patient plans to return home and resume home health services from [facility] upon discharge. SW attempted to contact and review the above with the patient's daughter, Sophia. SW left her a voicemail.
--- NOTE | 2020-09-16 15:04 | NUR ---
The patient's daughter, Sophia, returned ALTAGRACIA's phone call. Sophia is agreeable with the patient returning home. She states that the patient does not do much when she returns home though and would be interested in therapy coming out more from [facility]. ALTAGRACIA contacted Tamar at [facility] to follow up about this. Tamar reports that their PT visits the patient twice a week and their OT once a week. PT/OT were ordered. OT recommends home with home health. PT recommends home vs post-acute care. The patient had went to [facility] for a skilled stay after her last hospital stay in July. ALTAGRACIA contacted Sharon at [facility] and confirmed that she discharged from their facility on 08/18. She is still in her thirty day window. ALTAGRACIA met with the patient to discuss therapy's recommendation. The patient reports that she would like to return home and just resume home health.
[2020-09-16 17:37] LABS: FOLATE (FOLIC ACID) 4.5 ng/mL (7.0-31.4)
--- NOTE | 2020-09-16 19:30 | NUR ---
Patient doing well throughout the day, up to restroom multiple times with SBA. Denies further needs at this time. Will report off to power and recovery shift engineer.
--- NOTE | 2020-09-17 01:09 | NUR ---
Pt currently resting in bed. Pt did have some complaints of pain early and was given something for pain earlier. Pt has her call light within reach.
[2020-09-17 03:27] VITALS: BP 107/62; PULSE 70; TEMP 97.5
--- NOTE | 2020-09-17 04:02 | NUR ---
Pt currently sleeping in bed. Pt has her call light within reach. Pt has been up to the bathroom a couple of times with the aide throughout the shift. Pt has her call light within reach.
[2020-09-17 06:02] LABS: BASO # 0.2 (0.0-0.2); BASO % 1.7 % (0.0-2.0); EOS # 0.7 (0.0-0.7); EOS % 6.7 % (0-4.0); GRAN # 5.3 (1.4-6.5); GRAN % 47.9 % (42.2-75.2); LYMPH # 3.7 (1.2-3.4); LYMPH % 32.8 % (20.0-51.0); MEAN CELL VOLUME 85 fl (80.0-100.0); MEAN CORPUSCULAR HGB CONC 29 g/dl (33.0-37.0); MEAN PLATELET VOLUME 10.3 fl (7.4-10.4); MONO # 1.2 (0.1-0.6); MONO % 10.5 % (1.7-9.3); PLATELET COUNT 387 K/mm3 (130-400); RED BLOOD COUNT 3.28 M/mm3 (4.10-5.30); REDCELL DISTRIBUTION WIDTH-CV 18.1 % (11.5-14.5)
[2020-09-17 06:05] LABS: HEMATOCRIT 27.8 % (37.0-47.0); HEMOGLOBIN 8.1 g/dl (12.5-16.0); MEAN CORPUSCULAR HEMOGLOBIN 25 pg (27.0-31.0)
[2020-09-17 06:10] LABS: INR 1.8 (0.8-3.0); PROTHROMBIN TIME 20.6 SECONDS (9.7-12.8)
[2020-09-17 06:14] LABS: CALCIUM 8.2 mg/dL (8.4-10.2); CREATININE, serum 0.71 (0.52-1.25); POTASSIUM 3.9 mmol/L (3.4-5.0)
[2020-09-17 07:41] VITALS: BP 126/61; PULSE 78; TEMP 97.8
--- NOTE | 2020-09-17 08:00 | NUR ---
Pt is alert and oriented. Heart tones are present and normal, no murmur noted. Lung sounds are clear in all lobes upon auscultation. Pt states she is "doing good this morning". Pt has no complaints at this time. Pt's colostomy bag is intact with no redness. Pt has been taking care of colostomy by themself.
[2020-09-17] MEDS ORDERED: FERROUS SU325 MG/TAB PO (09:57)
--- NOTE | 2020-09-17 10:18 | NUR ---
Patient will discharge home today 09/17 with [facility]. SW faxed discharge orders and contacted agency to notify of discharge. Daughter Sophia has been made aware of discharge and will be providing transportation.
[2020-09-17 11:27] VITALS: BP 125/62; PULSE 74; TEMP 97.9
--- NOTE | 2020-09-17 11:50 | NUR ---
Patient doing well throughout the day. Discharge education provided to patient. Educated on new medication and scheduling follow up appointment. Educated on when to call provider. All questions answered. Patient out by wheelchair with surgical staff and Daughter. INT discontinued by RN student. No further needs at this time.
--- NOTE | 2020-09-17 11:51 | NUR ---
Pt was discharged and taken via wheelchair to auto with family.
== END 2020-09-17 11:50 | disposition home health service (06) ==
LOC: COL.ER 13:58 → SURG 17:00
PROVIDERS: Family Medicine; Hospitalist; Nurse Practitioner Family; ADMIT Family Medicine
DX: R42 Dizziness and giddiness (principal); J96.21 Acute and chronic respiratory failure with hypoxia; J44.9 Chronic obstructive pulmonary disease, unspecified; N39.0 Urinary tract infection, site not specified; I48.91 Unspecified atrial fibrillation; I10 Essential (primary) hypertension; D64.9 Anemia, unspecified; K21.9 Gastro-esophageal reflux disease without esophagitis; F32.9 Major depressive disorder, single episode, unspecified; F41.9 Anxiety disorder, unspecified; Z79.82 Long term (current) use of aspirin; Z79.01 Long term (current) use of anticoagulants; Z85.828 Personal history of other malignant neoplasm of skin; Z90.710 Acquired absence of both cervix and uterus; Z90.49 Acquired absence of other specified parts of digestive tract; Z87.891 Personal history of nicotine dependence; I07.1 Rheumatic tricuspid insufficiency
CPT/HCPCS: G0378; J0696; J2405; J7030; J7120; Q9967

== ENCOUNTER 2022-08-19 00:07 | Inpatient (IN) | payer MEDICARE, OTHER ==
[~2022-08-19] VITALS: Ht 172.7 cm; Wt 60.3 kg
[2022-08-19] VITALS (9 sets, daily range): BP systolic 109–146; BP diastolic 43–75; PULSE 76–139; TEMP 97.4–98.4
[~2022-08-19 00:07] MED LIST changes: +FERROUS SU325 MG/TAB PO
[2022-08-19 00:44] LABS: BASO # 0.1 K/mm3 (0.0-0.2); BASO % 0.6 % (0.0-2.0); EOS % 0.2 % (0.0-4.0); GRAN # 14.5 K/mm3 (1.4-6.5); GRAN % 83.2 % (42.2-75.2); HEMOGLOBIN 11.1 g/dl (12.5-16.0); LYMPH % 11.5 % (20.0-51.0); MEAN CELL VOLUME 86 fl (80.0-100.0); MEAN CORPUSCULAR HEMOGLOBIN 27 pg (27-31); MEAN CORPUSCULAR HGB CONC 31 g/dl (33.0-37.0); MEAN PLATELET VOLUME 9.5 fl (7.4-10.4); MONO # 0.7 K/mm3 (0.1-0.6); MONO % 4.1 % (1.7-9.3); PLATELET COUNT 492 K/mm3 (130-400); RED BLOOD COUNT 4.16 M/mm3 (4.10-5.30); REDCELL DISTRIBUTION WIDTH-CV 16.1 % (11.5-14.5)
[2022-08-19 00:59] LABS: TROPONIN-I < 0.010 ng/mL (0.00-0.033)
[2022-08-19 01:00] LABS: ALANINE AMINOTRANSFERASE 10 U/L (0-55); ALBUMIN 2.9 gm/dL (3.4-4.8); ALKALINE PHOSPHATASE 105 U/L (40-150); ANION GAP 11 mmol/L (7-16); AST,SGOT 15 U/L (5-34); BILIRUBIN,TOTAL 0.3 mg/dL (0.2-1.2); BLOOD UREA NITROGEN 13 mg/dL (10-20); CARBON DIOXIDE 26 mmol/L (23-31); CHLORIDE 103 mmol/L (98-107); CREATININE, serum 0.94 mg/dL (0.57-1.11); GLUCOSE 117 mg/dL (70-99); POTASSIUM 3.8 mmol/L (3.5-4.5); SODIUM 140 mmol/L (136-145); TOTAL PROTEIN 6.9 gm/dL (6.2-8.1)
[2022-08-19 01:03] LABS: HEMATOCRIT 35.8 % (37.0-47.0)
[2022-08-19 03:01] LABS: COLLECTION METHOD CATHETER
[2022-08-19 03:08] LABS: SQUAMOUS EPITHELIAL None Seen /hpf (0-10); URINE APPEARANCE Clear (CLEAR/HAZY); URINE BACTERIA Rare /hpf (NONE SEEN); URINE BLOOD TRACE-INTACT (NEGATIVE); URINE COLOR Yellow (YELLOW); URINE GLUCOSE Negative (NEGATIVE); URINE KETONE Negative (NEGATIVE); URINE NITRATE Negative (NEGATIVE); URINE PROTEIN(semi-quant) Negative (NEGATIVE); URINE RBC 0-2 /hpf (0-2); URINE UROBILINOGEN 0.2 E.U/dL (0.2-1.0)
[2022-08-19] MEDS ORDERED: ULTRAM 50MG TAB50 MG PO (05:59)
[2022-08-19] MEDS ORDERED: RT SPIRIVA18 MCG IH (06:38)
[2022-08-19] MEDS ORDERED: REMERON30 MG PO (06:38)
[2022-08-19] MEDS ORDERED: COUMADIN 5MG5 MG/TAB PO (06:41)
[2022-08-19] MEDS ORDERED: ZYRTEC 10MG10 MG PO (06:42)
[2022-08-19] MEDS ORDERED: REQUIP 0.5MG0.5 MG PO (06:43)
[2022-08-19 07:45] LABS: INR 2.7 (0.8-3.0); PROTHROMBIN TIME 31.3 SECONDS (9.7-12.8)
--- NOTE | 2022-08-19 09:40 | NUR ---
PATIENT ALERT AND ORIENTED X4. VSS. PATIENT HERE FOR CHEST PAIN AND POSITIVE ORTHOSTATIC BP. PATIENT DENIES ANY CHEST PAIN AT THIS TIME. PATIENT REPORTS URINARY RETENTION. BLADDER SCAN PERFORMED, APPROXIMATELY 320ML WITHIN BLADDER. PATIENT UNABLE TO VOID WHEN TAKEN TO BSC X3. DR CORDOVA NOTIFIED, ORDERED TO BLADDER SCAN AGAIN IN TWO HOURS. ORTHOSTATIC BP'S OBTAINED. NS RUNNING AT 100ML IN LEFT FA. PT IN WORKING WITH PATIENT. CALL LIGHT IN REACH.
--- NOTE | 2022-08-19 15:19 | NUR ---
SW met wit pt to complete intake. Pt reports living at home with daughter. Pt reports independent on all ADLs but does use a cane or walker. Pt reports she uses 2L of o2 from [facility] and see Dr. Braswell for PCP and gets medications from [facility] with no concerns. Pt reports she has used HH services in the past with [facility] and would interested in using them again if needed. DPOA is in the [facility] system and is her daughter, Sophia @ [phone]. No other needs at this time. Sw await foir further recommendations. DC: Home VS SNF
--- NOTE | 2022-08-19 19:00 | NUR ---
RECEIVED CHANGE OF SHIFT REPORT FROM DAY SHIFT RN.
--- NOTE | 2022-08-19 20:04 | NUR ---
PATIENT COMPLAINING OF CHEST PRESSURE, SEE VS PER MEDITECH, SKIN DRY, PATIENT ALSO C/O SOA, INFORMED PROVIDER OF PATIENT'S COMPLAINTS OF CHEST PAIN. ORDERS GIVEN FOR LOPRESSOR 25MG PO X1 DOSE, GET EKG AND C/O NAUSEA AND TO GIVE PATIENT IV MS.
--- NOTE | 2022-08-19 20:24 | NUR ---
INFORMED PROVIDER OF REPEAT BP CHECKED, MEDS GIVEN ORDER. PATIENT REPORTS THAT CHEST PRESSURE IS EASING UP.
--- NOTE | 2022-08-19 21:25 | NUR ---
INFORMED PROVIDER OF BLADDER SCAN OF 425, ORDERS GIVEN TO INSERT PARRY CATH TO DD.
[2022-08-20 03:52] VITALS: BP 136/43; PULSE 89; TEMP 97.7
[2022-08-20 06:52] LABS: HEMATOCRIT 28.8 % (37.0-47.0); HEMOGLOBIN 8.8 g/dl (12.5-16.0); MEAN CELL VOLUME 87 fl (80.0-100.0); MEAN CORPUSCULAR HEMOGLOBIN 27 pg (27-31); MEAN CORPUSCULAR HGB CONC 31 g/dl (33.0-37.0); MEAN PLATELET VOLUME 9.4 fl (7.4-10.4); PLATELET COUNT 446 K/mm3 (130-400); REDCELL DISTRIBUTION WIDTH-CV 16.3 % (11.5-14.5)
[2022-08-20 07:02] LABS: CALCIUM 8.3 mg/dL (8.4-10.2); CREATININE, serum 0.91 mg/dL (0.57-1.11); POTASSIUM 4.2 mmol/L (3.5-4.5)
[2022-08-20 07:04] LABS: INR 2.7 (0.8-3.0); PROTHROMBIN TIME 31.5 SECONDS (9.7-12.8)
--- NOTE | 2022-08-20 07:09 | NUR ---
CHANGE OF SHIFT REPORT GIVEN TO DAY SHIFT RNMANDI.
--- NOTE | 2022-08-20 07:14 | NUR ---
Received shift report from the night nurse, Tatum PAL.
--- NOTE | 2022-08-20 08:12 | NUR ---
Patient resting in bed, alert and oriented. Patient reports of occasional shortness of breath due to dry cough. Lungs CTA. Bowel sound active. Colostomy bag intact with small amount of content i n the bag. Asif draining clear jacey urine in the bag. 02 2L/NC in use. Patient denies of n/v. Will continue to monitor patient. Call parry within reach.
[2022-08-20 08:28] LABS: BAND 1 % (0-10); LYMPHOCYTE 5 % (20.0-51.0); MYELOCYTE 0 % (0-0)
[2022-08-20 08:29] LABS: ANISOCYTOSIS 1+; NEUTROPHILS 93 % (42.0-75.2); PLATELET ESTIMATE INCREASED (NORMAL)
[2022-08-20 08:30] LABS: BURR CELLS 1+
[2022-08-20 08:31] LABS: HYPOCHROMIA 2+; OVALOCYTES 1+
[2022-08-20 10:18] VITALS: BP 135/82; PULSE 70; TEMP 98.4
[2022-08-20 10:27] LABS: ARTERIAL BLD GAS O2 SATURATION 97.2 % (92-100); ARTERIAL BLD GAS TCO2 CT 21.9; ARTERIAL BLOOD GAS BASE EXCESS -4.8 (-2-2); ARTERIAL BLOOD GAS HCO3 20.6 meq/L (22-26); ARTERIAL BLOOD GAS PCO2 39.6 mmHg (35-45); ARTERIAL BLOOD GAS PO2 90.8 mmHg (80-100); ARTERIAL BLOOD GAS pH 7.34 (7.35-7.45)
--- NOTE | 2022-08-20 12:16 | NUR ---
Initial visit: Oil Well Service Operator went to room on rounds. Pt was eating lunch when heel seat pounder arrived. Pt has no needs right now. Pt appreciated the visit. Oil Well Service Operator will follow up as needed.
--- NOTE | 2022-08-20 13:07 | NUR ---
Patient c/o headache with pain level 8/10. Dr. Saldana was notified and ordered tylenol 650mg prn pain. Tylenol 650mg administered. Will continue to assess patient's pain level .
--- NOTE | 2022-08-20 13:38 | NUR ---
Manager Property met with PAtient at bedside to discuss discharge planning. Manager Property collaborated with PAtient in reviewing suggested PT/OT needs once discharged. Patient reported that she would like to return home with HH through [facility]. SW sent this referral and informed PAtient that SW will monitor her through treatment to continue assessing needs. SW will follow. Discharge Plan: Home with HH through [facility]- Pending approval.
[2022-08-20 13:40] VITALS: BP 115/55; PULSE 89; TEMP 98.9
--- NOTE | 2022-08-20 17:39 | NUR ---
Patient nauseous after eating dinner and was in a respiratory distress . Vital sign taken with normal reading. 02 sat 99% 2L/NC in use. Dr. Saldana notified and ordered zofran for n/v. Respiratory inform for breathing treatment. Patient scheduled solumderol administered.
[2022-08-20 17:40] VITALS: BP 115/55; PULSE 89; TEMP 98.9
--- NOTE | 2022-08-20 18:42 | NUR ---
RECEIVED CHANGE OF SHIFT REPORT FROM DAY SHIFT RN.
[2022-08-20 19:02] VITALS: BP 110/53; PULSE 90; TEMP 99.7
--- NOTE | 2022-08-20 19:17 | NUR ---
STOMA DRSG WITH OSTOMY BAG CHANGED PER PATIENT REQUEST. PATIENT TOLERATED PROCEDURE WITH NO COMPLAINTS. OBSERVED STOMA SITE CLEAR WITH NO REDNESS.
[2022-08-20 23:15] VITALS: BP 118/56; PULSE 97; TEMP 98.5
[2022-08-21] VITALS (7 sets, daily range): BP systolic 107–125; BP diastolic 36–62; PULSE 81–100; TEMP 97.8–98.5
--- NOTE | 2022-08-21 01:33 | NUR ---
C/O ACID REFLUX/NAUSEA. ZOFRAN IV GIVEN WITH HOT TEA. DENIES ANY OTHER NEEDS AT THIS TIME.
--- NOTE | 2022-08-21 04:57 | NUR ---
PATIENT REQUEST INFORMATION ON WHAT FOODS TO EAT WITH REGARDING TO HER COLOSTOMY. PATIENT GIVEN PATIENT EDUCATION INFORMATION ON COLOSTOMY CARE WITH DIETARY SUGGESTION INCLUDING IN PRINTED MATERIALS. PATIENT WITH FURTHER NEEDS OR CONCERNS REPORTED.
--- NOTE | 2022-08-21 06:54 | NUR ---
CHANGE OF SHIFT REPORT GIVEN TO DAY SHIFT RNMANDI.
--- NOTE | 2022-08-21 07:02 | NUR ---
Shift report received from the night nurse, Tatum PAL.
--- NOTE | 2022-08-21 09:29 | NUR ---
Initial visit; Patient thanked Call Or Contact Centre Manager for looking in on her and offering God's blessings. Call Or Contact Centre Manager will keep Elena in her prayers.
--- NOTE | 2022-08-21 09:49 | NUR ---
Patient c/o severe back pain and requests for pain medication. Patient rated pain level 7/10 and morphine administered IV. Will continue to assess patient's pain level.
--- NOTE | 2022-08-21 09:56 | NUR ---
Patient laying in bed alert. Patient states she had a sleepless night. Patient c/o n/v and request for zofran. Patient states she does have shortness of breath occasionally. Zofran administered and will continue to monitor patient.
[2022-08-21 10:10] LABS: INR 5.1 (0.8-3.0); PROTHROMBIN TIME 59.1 SECONDS (9.7-12.8)
--- NOTE | 2022-08-21 11:03 | NUR ---
Dr. Saldana notified of critical lab values of PT 59.1 and INR 5.1 and gave a telephone order to hold coumadin. Coumadin on hold per orders.
--- NOTE | 2022-08-21 18:48 | NUR ---
Emptied 300cc of soft brown content from the colostomy bag. Patient rated back pain 5/10 and does not need medication at this time.
--- NOTE | 2022-08-21 21:09 | NUR ---
PT STATED SHE DID NOT WANT TO BE WOKE UP FOR HER 0[address]. RN NOTIFIED.
[2022-08-22 03:47] VITALS: BP 114/60; PULSE 75; TEMP 98.4
--- NOTE | 2022-08-22 06:09 | NUR ---
pt on 2L O2 per NC, reports that she was unable to sleep tonight, even after the melatonin and morphine given. good urine and stool output this shift, IVF infusing @ 60cc/hr per piv. NSR on tele this am.
[2022-08-22 07:06] LABS: INR 4.7 (0.8-3.0)
[2022-08-22 07:10] LABS: PROTHROMBIN TIME 54.6 SECONDS (9.7-12.8)
--- NOTE | 2022-08-22 07:11 | NUR ---
CRITICAL PT/INR REPORTED TO ALISON JAMISON
[2022-08-22 07:23] VITALS: BP 128/71; PULSE 80; TEMP 98
--- NOTE | 2022-08-22 08:44 | NUR ---
Patient resting in bed. Reports not feeling herself due to not getting her home antidepressent medications & sleeping pills. Reports not sleeping well for days now. She has chronic pain medications to her back. She requested pain medication for rating of 8/10. See EMAR. She tolerated diet. Colostomy bag emptied, offered assistance with changing bag as needed. Ivf to Lfa. Will let patient rest and monitor.
--- NOTE | 2022-08-22 11:18 | NUR ---
Patient resting in bed. rounded this am. Social work assisting with discharge planning. Laya Leiva per orders. Pain better maanged at this time. Patient reports reflex troubles, requested TUMS. Orders obtained.
[2022-08-22 11:40] VITALS: BP 131/58; PULSE 79; TEMP 97.6
--- NOTE | 2022-08-22 13:46 | NUR ---
Patient resting back in bed. Stomach settled after Zofran. Denies other needs at this time.
[2022-08-22 15:25] VITALS: BP 140/67; PULSE 84; TEMP 98.1
--- NOTE | 2022-08-22 15:47 | NUR ---
Manager Strategic Sourcing met with Patient on her request to discuss discharge planning. Patient briefed SW that in self-review, she realizes that her needs may not be met if discharged home. Patient requested ALTAGRACIA send a referral to [facility]. ALTAGRACIA sent referal packet to [facility] with a follow-up phone call. [facility] clinically accepts patient at this time. Admission will depend on bed availability when Patient discharges. Discharge Plan: SNF [facility] clinically accept. Pending bed availability on discharge.
[2022-08-22 19:35] VITALS: BP 135/70; PULSE 84; TEMP 98.9
--- NOTE | 2022-08-22 19:35 | NUR ---
Patient resting in bed. Voided post elizalde removal without troubles. Tolerated dinner, in good spirits. Patient hoping to get a good nights rest. Matias to resume cares
[2022-08-22 23:14] VITALS: BP 123/66; PULSE 72; TEMP 98
[2022-08-23 04:06] VITALS: BP 131/65; PULSE 74; TEMP 98.1
[2022-08-23 07:36] VITALS: BP 150/80; PULSE 83; TEMP 98.2
[2022-08-23 10:18] LABS: INR 2.2 (0.8-3.0)
[2022-08-23 11:06] VITALS: BP 139/69; PULSE 69; TEMP 99.5
[2022-08-23 15:24] VITALS: BP 143/68; PULSE 71; TEMP 98
[2022-08-23 19:38] VITALS: BP 149/76; PULSE 74; TEMP 98.1
--- NOTE | 2022-08-23 21:49 | NUR ---
pt resting in bed. reports pain an 01/17. IV to LF discontinued due to leaking. IV meds switched to PO meds per dr orders. colostomy in place. pt on 2L o2 baseline. vss and tele in place. pt denies needs at this time. call light in reach.
[2022-08-23 23:37] VITALS: BP 131/61; PULSE 81; TEMP 98.1
[2022-08-24 03:54] VITALS: BP 152/74; PULSE 71; TEMP 97.8
[2022-08-24 07:12] VITALS: BP 147/71; PULSE 66; TEMP 98.2
[2022-08-24] MEDS ORDERED: PROAIR HFA0.09 MG/AC IH (09:16)
[2022-08-24] MEDS ORDERED: PREDNISONE10 MG PO (09:16)
[2022-08-24] MEDS ORDERED: RT SPIRIVA18 MCG IH (09:16)
[2022-08-24] MEDS ORDERED: LIPITOR20 MG PO (09:19)
--- NOTE | 2022-08-24 09:19 | NUR ---
PATIENT ALERT AND ORIENTED X4. VSS. PATIENT HERE FOR SOB/PORTILLO/CHEST PAIN/ +ORTHOSTATICS. PATIENT REPORTS PAIN 2/10 IN SHOULDERS. PATIENT REPORTS PORTILLO WHEN AMBULATING TO BATHROOM. COLOSTOMY TO RLQ WITH OUTPUT. PATIENT REPORTS EMPTIES AND BURPS BAG PRN. ASSESSMENT PERFORMED. AM MEDS ADMINISTERED. NO IV. TELE DC'D PER DR. CHAO. CALL LIGHT IN REACH.
--- NOTE | 2022-08-24 11:17 | NUR ---
High School Library Media Specialist met with Patient to complete Medicare IM form. Form completed and placed in chart. Patient declined a copy.
[2022-08-24 11:19] VITALS: BP 149/75; PULSE 81; TEMP 98.7
--- NOTE | 2022-08-24 14:04 | NUR ---
REPORT CALLED TO HAKAN AT [facility]. PATIENT AND BELONGINGS ESCORTED OUT WITH TRANSPORTER.
[2022-08-24] MEDS ORDERED: ULTRAM 50MG TAB50 MG PO (15:54)
== END 2022-08-24 14:00 | DRG 191 ==
LOC: COL.ER 00:07 → SURG 04:29
PROVIDERS: Internal Medicine; Nurse Practitioner Family; Personal Emergency Response Attendant; ADMIT Student in an Organized Health Care Education/Training Program
DX: J44.1 Chronic obstructive pulmonary disease with (acute) exacerbation (principal); J96.11 Chronic respiratory failure with hypoxia; R65.10 Systemic inflammatory response syndrome (SIRS) of non-infectious origin without acute organ dysfunction; I08.1 Rheumatic disorders of both mitral and tricuspid valves; I10 Essential (primary) hypertension; I48.91 Unspecified atrial fibrillation; D64.9 Anemia, unspecified; I95.1 Orthostatic hypotension; K21.9 Gastro-esophageal reflux disease without esophagitis; D75.839 Thrombocytosis, unspecified; F41.9 Anxiety disorder, unspecified; F32.A Depression, unspecified; E86.0 Dehydration; R53.81 Other malaise; Z79.01 Long term (current) use of anticoagulants; Z79.82 Long term (current) use of aspirin; Z95.818 Presence of other cardiac implants and grafts; Z87.11 Personal history of peptic ulcer disease; Z85.828 Personal history of other malignant neoplasm of skin; Z87.891 Personal history of nicotine dependence; Z90.710 Acquired absence of both cervix and uterus; Z88.2 Allergy status to sulfonamides; Z88.0 Allergy status to penicillin
CPT/HCPCS: OP; A4314; J0696; J2270; J2405; J2920; J2930; J7030; J7512

== ENCOUNTER 2023-03-19 09:38 | Inpatient (IN) | payer MEDICARE, OTHER ==
[~2023-03-19] VITALS: Ht 172.7 cm; Wt 56.8 kg
[2023-03-19] VITALS (7 sets, daily range): BP systolic 111–146; BP diastolic 62–74; PULSE 84–135; TEMP 97.8–98.5
[~2023-03-19 09:38] MED LIST changes: +CARDIZEM CD 12120 MG PO; +IBU800 M1 PO; +LIPITOR20 MG PO; +PREDNISONE10 MG PO; +REMERON30 MG PO; +REQUIP 0.5MG0.5 MG PO; +REQUIP 1MG T1 MG/TAB PO; +RT ADVAIR 228 DISKUS IH
[2023-03-19 10:05] LABS: BASO % 0.2 % (0.0-2.0); EOS # 0.6 K/mm3 (0.0-0.7); EOS % 3.6 % (0.0-4.0); GRAN # 11.9 K/mm3 (1.4-6.5); GRAN % 72.7 % (42.2-75.2); LYMPH # 2.9 K/mm3 (1.2-3.4); LYMPH % 17.9 % (20.0-51.0); MEAN CELL VOLUME 93 fl (80.0-100.0); MEAN CORPUSCULAR HGB CONC 27 g/dl (33.0-37.0); MEAN PLATELET VOLUME 10.1 fl (7.4-10.4); MONO # 0.9 K/mm3 (0.1-0.6); MONO % 5.2 % (1.7-9.3); PLATELET COUNT 329 K/mm3 (130-400); RED BLOOD COUNT 3.89 M/mm3 (4.10-5.30); REDCELL DISTRIBUTION WIDTH-CV 16.9 % (11.5-14.5)
[2023-03-19 10:16] LABS: COLLECTION METHOD CATHETER
[2023-03-19 10:17] LABS: HEMATOCRIT 36.1 % (37.0-47.0); HEMOGLOBIN 9.9 g/dl (12.5-16.0); MEAN CORPUSCULAR HEMOGLOBIN 25 pg (27-31)
[2023-03-19 10:20] LABS: ALANINE AMINOTRANSFERASE 16 U/L (0-55); ALBUMIN 3.3 gm/dL (3.4-4.8); ALKALINE PHOSPHATASE 100 U/L (40-150); ANION GAP 12 mmol/L (7-16); AST,SGOT 16 U/L (5-34); BILIRUBIN,TOTAL 0.3 mg/dL (0.2-1.2); BLOOD UREA NITROGEN 16 mg/dL (10-20); CALCIUM 9.4 mg/dL (8.4-10.2); CARBON DIOXIDE 37 mmol/L (23-31); CHLORIDE 94 mmol/L (98-107); CREATININE, serum 0.97 mg/dL (0.57-1.11); GLUCOSE 109 mg/dL (70-99); POTASSIUM 4.2 mmol/L (3.5-4.5); SODIUM 143 mmol/L (136-145); TOTAL PROTEIN 6.6 gm/dL (6.2-8.1)
[2023-03-19 10:29] LABS: TROPONIN-I < 0.010 ng/mL (0.00-0.033)
[2023-03-19 10:34] LABS: URINE APPEARANCE Clear (CLEAR/HAZY); URINE BLOOD 2+ (NEGATIVE); URINE COLOR Yellow (YELLOW); URINE GLUCOSE Negative (NEGATIVE); URINE KETONE Negative (NEGATIVE); URINE NITRATE Negative (NEGATIVE); URINE PROTEIN(semi-quant) TRACE (NEGATIVE); URINE UROBILINOGEN 0.2 E.U/dL (0.2-1.0)
[2023-03-19 10:35] LABS: URINE BACTERIA Occasional /hpf (NONE SEEN)
[2023-03-19] MEDS ORDERED: PREDNISONE10 MG PO (13:51)
[2023-03-19] MEDS ORDERED: ATIVAN 0.50.5 MG/TAB PO (13:53)
--- NOTE | 2023-03-19 16:02 | NUR ---
vault worker contacted [facility] as patient was in the hospital last month and discharged with their services. [facility]' expressed they were still providing services to patient. vault worker provided update on patient's status. vault worker expressed since patient just arrived to the hospital they do not have a discharge plan at this time but she would continue to follow patient's care for updates. vault worker faxed clinical updates to [facility].
[2023-03-19 16:54] LABS: INR 11.6 (0.8-3.0); PROTHROMBIN TIME 117.7 SECONDS (9.7-12.8)
--- NOTE | 2023-03-19 16:56 | NUR ---
DR. BENITO NOTIFIED @ 2384 FOR CRITICAL PT/INR LEVELS; COUMADIN PLACED ON HOLD
--- NOTE | 2023-03-19 20:00 | NUR ---
Patient resting in bed. Rates her pain an 8/10, PRN pain meds given. Assessment complete. Snack provided. Denies any other needs at this time. Call light and personal items in reach. Bed in low positon.
[2023-03-20] VITALS (12 sets, daily range): BP systolic 108–134; BP diastolic 52–74; PULSE 85–113; TEMP 97.4–98.6
[2023-03-20 05:51] LABS: BASO % 0.1 % (0.0-2.0); GRAN # 11.7 K/mm3 (1.4-6.5); GRAN % 89.9 % (42.2-75.2); LYMPH # 0.9 K/mm3 (1.2-3.4); LYMPH % 6.6 % (20.0-51.0); MEAN CORPUSCULAR HGB CONC 29 g/dl (33.0-37.0); MONO # 0.4 K/mm3 (0.1-0.6); PLATELET COUNT 308 K/mm3 (130-400); RED BLOOD COUNT 3.87 M/mm3 (4.10-5.30); REDCELL DISTRIBUTION WIDTH-CV 16.9 % (11.5-14.5)
[2023-03-20 05:53] LABS: HEMATOCRIT 33.5 % (37.0-47.0); HEMOGLOBIN 9.8 g/dl (12.5-16.0); MEAN CELL VOLUME 87 fl (80.0-100.0); MEAN CORPUSCULAR HEMOGLOBIN 25 pg (27-31)
[2023-03-20 05:56] LABS: PROTHROMBIN TIME 82.2 SECONDS (9.7-12.8)
--- NOTE | 2023-03-20 05:57 | NUR ---
Ayaka INDUSTRIAL NURSE called and notified of critical PT of 82.2 and INR of 8. New orders recieved for Vitamin K.
[2023-03-20 06:00] LABS: CALCIUM 9.6 mg/dL (8.4-10.2); CREATININE, serum 0.98 mg/dL (0.57-1.11); POTASSIUM 4.4 mmol/L (3.5-4.5)
--- NOTE | 2023-03-20 06:30 | NUR ---
Patient resting in bed. Patient states she is comfortable and her pain is about a 3/10. Vitamin K infusion completed with no complications. Denies any needs at this time. Call light and personal items in reach. Bed in low position.
--- NOTE | 2023-03-20 10:38 | NUR ---
Initial visit; Patient welcomes Instructor Hairspring and lets Instructor Hairspring know that she isn't doing well and the news isn't good from the Doctor. Instructor Hairspring listened and offered prayer for God's presence and love for Elena to give her peace. Instructor Hairspring will follow up.
--- NOTE | 2023-03-20 12:44 | NUR ---
PATIENT REPORTED FEELING PAIN RATING IT A 5/10. AFTER SITTING UP FOR A FEW MINUTES IN BED. PRN WAS GIVEN PER EMAR. CALL LIGHT WITHIN REACH BED AT LOWEST POSTIION.
--- NOTE | 2023-03-20 14:51 | NUR ---
Machine Stripper Cutter met with patient to complete intake. Patient lives alone in [place] and sees Dr. Braswell for primary care. Patient has in home services though [facility] and advised she is normally independent with ADLS, but now she cannot walk. Patient has both a cane and walker available at home along with home oxygen through [employer]. Patient stated that her daugherSophia (ph#[phone]) is her DPOA-HC. Patient would be open to rehab as she stated she cannot walk at this time, however SW explained the barriers she faces being observation status. SW advised she does not qualify for SNF under her Medicare benefit. Patient stated she cannot private pay. Patient is agreeable to an [facility] referral, which SW gave to Asha, Director. SW also discussed returning home with Home Health or staying with family as possible options. Later on, a palliative consult was placed. MELA Chris and ALTAGRACIA met with patient to discuss goals of care. Patient is clear that she does not want to give up and wants to continue with care at this time. Patient is not interested in palliative/hospice services. SW attempted to contact patient's daughter, Sophia and left a message. Discharge Plan: Pending PT/OT OSCAR cary screen given
--- NOTE | 2023-03-20 15:20 | NUR ---
I had Palliative Care meeting with pt- Elena, myself, and ALTAGRACIA Mullins. Pt is currently DNR. Hx Squamous Cell Carcinoma. Pulmonology following case. Pt only able to sit up in chair for 20 minutes today. Pt does have new T5 Compression Fx causing pain. Pt has not started Radiation tx- unable to do Chemo. When pt was asked what her strength was she stated, "I want to live." When she was asked what weakness she was dealing with she stated "I don't want to . I'm not chosing this for my kids but for myself." I expressed to pt that I thought her time may be short and that we needed to discuss what we could do for discharge if she is unable to obtain the goals for skilled/[facility]R. Pt stated, "I feel like everybody is giving up." I redirected pt stating we had to have a honest discussion so as to have an effective discharge according to her desires the best we could. She stated agreement. Encouraged pt that she could think over what we had discussed and we would talk again tomorrow. Pain is currently controlled.
--- NOTE | 2023-03-20 16:48 | NUR ---
PATIENT REPORTED FEELING NAUSEAUS AND WANTED SOEMTHING FOR IT. NOTIFIED CARE PROVIDER. AND GAVE PRN MEDICATION PER EMAR. CALL LIGHT WITHIN REACH. PATIENTS BED AT LOWEST POSITION.
--- NOTE | 2023-03-20 20:30 | NUR ---
Patient resting in bed. Rates her pain an 7/10 at this time, pain meds given. Assessment complete at this time. Snack provided. Denies any other needs at this time. IV flushes easily with no complications at this time. Call light and personal items in reach. Bed in low position
[2023-03-21] VITALS (13 sets, daily range): BP systolic 112–126; BP diastolic 57–70; PULSE 85–106; TEMP 98–98.9
[2023-03-21 05:34] LABS: BASO % 0.1 % (0.0-2.0); EOS # 0.1 K/mm3 (0.0-0.7); EOS % 0.5 % (0.0-4.0); GRAN # 12.2 K/mm3 (1.4-6.5); GRAN % 80.4 % (42.2-75.2); LYMPH # 1.9 K/mm3 (1.2-3.4); LYMPH % 12.8 % (20.0-51.0); MEAN CELL VOLUME 85 fl (80.0-100.0); MEAN CORPUSCULAR HGB CONC 30 g/dl (33.0-37.0); MEAN PLATELET VOLUME 10.1 fl (7.4-10.4); MONO # 0.9 K/mm3 (0.1-0.6); MONO % 5.7 % (1.7-9.3); PLATELET COUNT 282 K/mm3 (130-400); RED BLOOD COUNT 3.32 M/mm3 (4.10-5.30); REDCELL DISTRIBUTION WIDTH-CV 16.9 % (11.5-14.5)
[2023-03-21 05:37] LABS: HEMATOCRIT 28.2 % (37.0-47.0); HEMOGLOBIN 8.4 g/dl (12.5-16.0); MEAN CORPUSCULAR HEMOGLOBIN 25 pg (27-31)
[2023-03-21 05:41] LABS: INR 1.1 (0.8-3.0); PROTHROMBIN TIME 11.7 SECONDS (9.7-12.8)
[2023-03-21 05:52] LABS: CREATININE, serum 1.23 mg/dL (0.57-1.11); POTASSIUM 4.6 mmol/L (3.5-4.5)
--- NOTE | 2023-03-21 06:20 | NUR ---
Patient resting in bed. Respiratons even and unlabored at this time. Denies any pain at this time. Supplies for colostomy change in room. Denies any other needs at this time. Call light and personal items in reach. Bed in low positoin
--- NOTE | 2023-03-21 07:55 | NUR ---
Patient is laying in bed in semi-fowlers position. She is oxygen 2L via nasal canulla. Patient has an IV in right arm ther are no infusions going at this time. Patient has a 14f elizalde catheter that is draining clear yellow urine. Patient is fall risk so she is wearing yellow socks, wristband and gown. call lisht is within reach and bed is in lowest position.
--- NOTE | 2023-03-21 10:59 | NUR ---
Patient is laying in bed in semi-fowlers position. Patient just got her 14f catheter removed there was 150mL of clear yellow urine in the catheter bag. She also got her IV removed as it was not longer flushing properly, a new one was inserted into her lower right forearm. Patient was asking if she could have some pain medication and the nurse was notified.
--- NOTE | 2023-03-21 11:01 | NUR ---
New INT started with 22G catheter on R Wrist. Pt tolerated well the procedure. IV on RFA got DC with tip of catheter intact.
--- NOTE | 2023-03-21 15:31 | NUR ---
Sql Developer Dba collaborated with PT who advised it would be reasonable for patient to either return home with HH or go to SNF. ALTAGRACIA also spoke with MELA Chris who advised patient was upgraded to inpatient status. SW met with patient who stated she thinks it would be better for her at this point to get some more rehab before returning home. SW also talked with patient about expectations for SNF including that she would not be able to get chemotherapy or radiation while there. Patient verbalized understanding and stated [facility] would be her first preference, but also wanted referrals sent to [facility] and [facility]. SW faxed referrals to all three. Later, ALTAGRACIA met with patient's daughter, Sophia at bedside to provide update. ALTAGRACIA was contacted by all three facilities who continue to review referral. Oli at [facility] advised they can clinically accept but are verifying insurance. Discharge Plan: SNF
--- NOTE | 2023-03-21 16:01 | NUR ---
PATIENT REPORTED HAVING SOME ANXIETY AND REQUESTED SOME ANXIETY MEDICATION. PRN WAS GIVEN PER EMAR. CALL LIGHT WITHIN REACH BED ALARM ON.
--- NOTE | 2023-03-21 16:08 | NUR ---
[facility]
--- NOTE | 2023-03-21 17:41 | NUR ---
DOCTOR ORDERED RADIOLOGY CONSULT FOR KYPHOPLASTY EVAL. I TRIED TO NOTIFIED RADIOLOGY OF THE CONSULT BUT THEY WERE NO LONGER IN OFFICE. WILL PASS ON THE INFORMATION TO REIMBURSEMENT CONSULTANT SO THEY CAN NOTIFY RADIOLOGY INSIDE SALES ACCOUNT MANAGER TOOMORROW.
--- NOTE | 2023-03-21 20:00 | NUR ---
Assessment complete. A&Ox4. Denies nausea. Short of breath with activity. Rating pain 4/10 to lower back. Not due for pain meds yet and states she can wait for next dose. TELE reporting SR. O2@2L/NC. Does not have IV access. Report from day shift that provider states okay to leave out due to hard stick. Will clarify with Db MAGALLANES. Noted to have skin tear to right elbow. Scabs noted to left hand. Bilat upper extremity ecchymosis-worse on right upper armm from previous fall. Plan of care discussed for this shift to include meds/pain control/calling for questions/concerns. Verbalizes understanding. Call light in reach. Will monitor.
--- NOTE | 2023-03-21 21:05 | NUR ---
Patient called stating that she needed an inhaler. This nurse to room and patient noted to have labored breathing-O2 saturation 82% on 2L/NC. O2 increased to 4L/NC with saturations 92%. Patient appears very anxious and requesting ativan early. Spoke with Db MAGALLANES and new orders received can give a dose early. Diminished breath sounds bilat. Spoke with RT-states patient just had three breathing txs.
--- NOTE | 2023-03-21 21:25 | NUR ---
ELPIDIO Ace at bedside.
[2023-03-21 22:00] LABS: MEAN CELL VOLUME 86 fl (80.0-100.0); MEAN CORPUSCULAR HGB CONC 30 g/dl (33.0-37.0); PLATELET COUNT 270 K/mm3 (130-400); REDCELL DISTRIBUTION WIDTH-CV 17.1 % (11.5-14.5)
--- NOTE | 2023-03-21 22:00 | NUR ---
22g INT placed to left forearm x3 attempts by this nurse. Flushes well with n o s/s of infiltration. Now order of mmorphine given per dr order. RT at bedside for EKG.
[2023-03-21 22:05] LABS: HEMATOCRIT 31.8 % (37.0-47.0); HEMOGLOBIN 9.4 g/dl (12.5-16.0); MEAN CORPUSCULAR HEMOGLOBIN 25 pg (27-31)
[2023-03-21 22:15] LABS: ANION GAP 13 mmol/L (7-16); BLOOD UREA NITROGEN 28 mg/dL (10-20); CARBON DIOXIDE 31 mmol/L (23-31); CHLORIDE 97 mmol/L (98-107); CREATININE, serum 1.24 mg/dL (0.57-1.11); GLUCOSE 166 mg/dL (70-99); POTASSIUM 4.5 mmol/L (3.5-4.5); SODIUM 141 mmol/L (136-145)
[2023-03-21 22:22] LABS: HYPOCHROMIA 2+; LYMPHOCYTE 2 % (20.0-51.0); NEUTROPHILS 95 % (42.0-75.2)
[2023-03-21 22:25] LABS: TROPONIN-I < 0.010 ng/mL (0.00-0.033)
[2023-03-22] VITALS (10 sets, daily range): BP systolic 99–145; BP diastolic 58–77; PULSE 84–115; TEMP 97.9–98.5
--- NOTE | 2023-03-22 04:54 | NUR ---
chief technician x ray to desk stating patient refused blood draw for this AM requesting she come back in a few hours due to lack of sleep. chief technician x ray states she will return for lab draw later this AM
--- NOTE | 2023-03-22 05:54 | NUR ---
Patient has rested last few hours. Refused AM labs and meds due to wanting to sleep. VS have remained stable. Received morphine x1 and oxycodone x1. Currently on O2@2L/NC. Colostomy with adequate output-patient cares for. TELE reporting SR. 22 g INT was placed to left forearm-flushes well. Resting with eyes closed. No s/s of pain or discomfort noted. Will monitor.
--- NOTE | 2023-03-22 07:00 | NUR ---
PATIENT IS ASLEEPING, RESTING IN BED. FALL PREVAUTIONS IN PLACE. PATIENT IS NSR ON TELE. CALL LIGHT WITHIN REACH.
--- NOTE | 2023-03-22 07:30 | NUR ---
Upon entering patient room she was laying in a semi-fowlers position. She stated that she had a long night and just wanted to be left alone, I asked if I could get her vitals and do a head to toe assessment quickly and she agreed. Patient stated that she was having some shortness of breath and she was taking shallow breaths with the use of abdominal muscles. Her ostomy is on her right side and it was draining brown stool. She stated that she did not have pain at this time, but usually gets worse when she moves around.She was in her fall precautions such as the yellow gown, socks and the risk wristband.
--- NOTE | 2023-03-22 08:32 | NUR ---
PATIENT CALLED RN WITH COMPLAINTS AFTER RECIEVEING HER BREATHING TREATMENT. PATIENT STATED SHE WAS FEELING SOB WHILE SITTING EDGE OF BED EATING BREAKFAST, AND FELT LIKE SHE COULDNT CATCH HER BREATH PATIENTS HR 95 AND O2 SAT 95 %, HER CURRENT RESPIRATIONS ARE 26 PER MINUTE. PATIENT RESTING FULLY IN BED AT THIS TIME.
--- NOTE | 2023-03-22 10:58 | NUR ---
Patient is laying in bed in a semi-fowlers position. She is rating her pain at 4-5 she states that her pain is tolerable but wants to get ahead of it and keep it tolerable. Patient asked for a bed bath so I gave her one and washed her hair, she stated that she felt much better after. She was experiencing some anxiety today so her nurse gave her an Ativan and she stated that it helped very much.
--- NOTE | 2023-03-22 15:47 | NUR ---
Airworthiness Safety Inspector followed up on referrals for patient. [facility] declines referral at this time, however both [facility] and [facility] can accept. SW updated patient who prefers [facility]. SW faxed clinical updates to both facilities. ALTAGRACIA notified Oli at [facility] that they are first preference. ALTAGRACIA attempted to contact daughter, Sophia and left her a message.
--- NOTE | 2023-03-22 21:33 | NUR ---
Patient assessed around 1899. Complained of level 5 pain to back. Given PRN Roxicodone as requested. Continued to have level 5 pain around 2129, and given scheduled Acetaminophen as well as an additional dose of Roxicodone per PRN order. On oxygen at 2 L/min via NC. SPO2 99%. Has history of COPD, and asked if she would allow this nurse to decrease oxygen, as most people with COPD have a goal SPO2 of 92%. Patient stated that she baseline wears oxygen at 2 L/min via NC, and refused decrease in oxygen. LS CTA in upper lobes, diminished in lower. Respirations shallow. Had dressing to skin tear on right wrist area, taken off and left open to air, no drainage at this time. Colosty to RLQ of abdomen emptied. Voices no further questions, needs, or concerns at this time. In bed with call light within reach. High fall risk precautions in place. Bed alarm on.
[2023-03-23 03:58] VITALS: BP 125/67; PULSE 91; TEMP 98.5
[2023-03-23 04:15] VITALS: BP_SYST 125
--- NOTE | 2023-03-23 06:07 | NUR ---
Patient given PRN Ativan around 2300 to help with anxiety as requested. Patient declining medication this morning, stated that she will take it later, as she is sleepy and would like to get more rest. Voices no questions, needs, or concerns at this time. In bed with call light within reach. High fall risk precautions in place. Bed alarm on.
[2023-03-23 06:21] LABS: PROTHROMBIN TIME 11.2 SECONDS (9.7-12.8)
--- NOTE | 2023-03-23 07:22 | NUR ---
PATIENT ASLEEP, RESTING IN BED. HR NSR ON TELE. FALL PRECAUTIONS IN PLACE. CALL LIGHT WITHIN REACH.
[2023-03-23 07:39] VITALS: BP 120/90; PULSE 99; TEMP 98.4
[2023-03-23 09:00] VITALS: BP_SYST 120
[2023-03-23] MEDS ORDERED: FORTICAL200 IU/ACT NS (11:24)
[2023-03-23 11:26] VITALS: PULSE 92; TEMP 97.8
[2023-03-23] MEDS ORDERED: NORCO 325 MG-101 TAB PO (11:27)
--- NOTE | 2023-03-23 12:16 | NUR ---
CASANDRA IV AND TELE REMOVED. PATIENT ASSISTED BY PCT TO DRESS FOR TRANSFER.
--- NOTE | 2023-03-23 12:31 | NUR ---
HAKAN AT [facility] GIVEN REPORT ON PATIENT. CALL BACK NUMBER GIVEN IF ANY QUESTIONS ARISE.
--- NOTE | 2023-03-23 12:34 | NUR ---
MD LUNDBERGED RN TO GIVE PATIENT HER OXY AND ATIVAN EARLY PRIOR TO TRANSFER.
[2023-03-23] MEDS ORDERED: ATIVAN 0.50.5 MG/TAB PO (12:35)
--- NOTE | 2023-03-23 13:08 | NUR ---
PATIENT PICKED UP BY [employer] EMPLOYEE. PACKET GIVEN. ALL PATIENTS BELONGINGS WITH HER. PATIENT DISCHARGED IN STABLE CONDITION.
--- NOTE | 2023-03-23 14:19 | NUR ---
PM Wardrobe Supervisor rounds: Wardrobe Supervisor and Patient spoke about her move to [facility] [place] today. Patient has positive outlook for the move. Wardrobe Supervisor prayed for Patient. As the prayer completed, the RN and commercial collections driver for the move arrived and began preparing her for the transport.
== END 2023-03-23 13:09 | DRG 914 ==
LOC: COL.ER 09:38 → MEDICAL 11:30
PROVIDERS: Emergency Medicine; Internal Medicine; Physician Assistant; ADMIT Internal Medicine
DX: T14.8XXA Other injury of unspecified body region, initial encounter (principal); C34.90 Malignant neoplasm of unspecified part of unspecified bronchus or lung; J96.10 Chronic respiratory failure, unspecified whether with hypoxia or hypercapnia; G72.81 Critical illness myopathy; W19.XXXA Unspecified fall, initial encounter; I48.91 Unspecified atrial fibrillation; Z79.01 Long term (current) use of anticoagulants; I10 Essential (primary) hypertension; J44.9 Chronic obstructive pulmonary disease, unspecified; F32.A Depression, unspecified; F41.9 Anxiety disorder, unspecified; K21.9 Gastro-esophageal reflux disease without esophagitis; Z66 Do not resuscitate; Z88.0 Allergy status to penicillin; Z88.2 Allergy status to sulfonamides
CPT/HCPCS: A9270; G0378; J0696; J2270; J2405; J3010; J3430; J7512; Q9967